=== PATIENT | male | born 1970 | race Caucasian/White ===

== ENCOUNTER 2020-06-07 09:38 | Inpatient (IN) | payer BC ==
[2020-06-07 10:28] LABS: #Lymphocytes 0.5 thou/uL (1.20-3.40); #Monocytes 0.7 thou/uL (0.11-0.59); #Neutrophils 5.9 thou/uL (1.40-6.50); %Eosinophils 0.2 % (0.0-10.0); %Lymphocytes 7.1 % (21.0-51.0); %Monocytes 9.6 % (0.0-10.0); %Neutrophils 83.1 % (42.0-75.0); Hemoglobin 12.2 g/dL (14.0-18.0); Mean Corpuscular HGB CONC 33.9 g/dL (32.0-36.0); Mean Platelet Volume 9.2 fL (7.4-10.4); Platelet Count 140 thou/uL (130-400); RBC Distribution Width 11.9 % (11.5-14.5); Red Blood Cell (RBC) Count 3.58 mill/uL (4.70-6.10); White Blood Cell (WBC) Count 7.1 thou/uL (4.8-10.8)
[2020-06-07 10:49] LABS: ALT (SGPT) 176 U/L (8-55); AST (SGOT) 153 U/L (5-34); Albumin 3.8 g/dL (3.5-5.0); Alkaline Phosphatase 106 U/L (40-110); Anion Gap 13 mmol/L (10-20); BUN (Urea Nitrogen) 18 mg/dL (8.4-25.7); Bilirubin, Total 0.8 mg/dL (0.2-1.2); Calc. Creatinine Clearance 0 mL/min (70-130); Calcium 8.1 mg/dL (7.8-10.44); Carbon Dioxide 25 mmol/L (22-29); Chloride 105 mmol/L (98-107); Globulin 2.6 g/dL (2.4-3.5); Glucose 125 mg/dL (70-105); Potassium 4.4 mmol/L (3.5-5.1); Protein, Total 6.4 g/dL (6.0-8.3); Sodium 139 mmol/L (136-145)
[2020-06-07] MEDS ORDERED: cefTRIAXone\\ROCEPHIN 1 GM VIAL ONE (10:52)
[2020-06-07] MEDS ORDERED: Ibuprofen 200 MG TAB ONE (10:52)
[2020-06-07] MEDS ORDERED: Dexamethasone 10 MG/ML VIAL ONE (10:52)
[2020-06-07] MEDS ORDERED: Azithromycin 500 MG VIAL ONE (10:52)
[2020-06-07] MEDS ORDERED: Iopamidol-370 76% 500 ML 1 ML ONE (11:17)
[2020-06-07] MEDS ORDERED: PROPOFOL 200 MG/20 ML VIAL ONE (11:42)
[2020-06-07] MEDS ORDERED: Succinylcholine 200 MG/10 ml SYRINGE FS ONE (11:42)
[2020-06-07 12:52] LABS: SARS-CoV-2 NAA Rapid Test DETECTED (NotDetected)
[2020-06-07] MEDS ORDERED: Ascorbic Acid 500 mg Chewable Tablet PO SCH ×2 (13:45→21:00)
[2020-06-07] MEDS ORDERED: Enoxaparin Sodium 40 MG/0.4 ML SYRINGE SC SCH (13:45)
[2020-06-07 15:39] LABS: Bilirubin Negative (Negative); Blood, Urine Negative (Negative); Clarity Clear (Clear); Glucose, Urine (Dipstick) Normal (Negative); Ketone, Urine Negative (Negative); Leukocyte Negative Leu/uL (Negative); Nitrite Negative (Negative); Protein, Urine (Dipstick) 20 mg/dL (Neg-Trace); Specific Gravity, Urine 1.038 (1.002-1.036); Urobilinogen Normal mg/dL (Less than 2); pH, Urine 6.5 (5.0-9.0)
[2020-06-07] MEDS ORDERED: guaiFENesin 200 MG TAB PO SCH (18:00)
[2020-06-07] MEDS ORDERED: Pharmacy to Dose REMDESIVIR IVPB PRN (19:50)
[2020-06-07] MEDS: Enoxaparin Sodium 40 MG/0.4 ML SYRINGE SC SCH (23:06)
[2020-06-07] MEDS ORDERED: Amlodipine 5 MG TAB PO SCH (23:30)
[2020-06-07] MEDS: Guaifenesin DM 100-10/5 ML UDCUP PO PRN (23:37)
[2020-06-07] MEDS: Acetaminophen 325 MG TAB PO PRN (23:38)
[2020-06-07] MEDS: Ondansetron PF 4 MG/2 ML Vial IVP PRN (23:38)
[2020-06-07] MEDS ORDERED: REMDESIVIR (EUA) 200 MG in Sodium Chloride 0.9% 250 ML 210 ML IV SCH (23:45)
[2020-06-08] MEDS: Guaifenesin DM 100-10/5 ML UDCUP PO PRN (03:20)
[2020-06-08 05:16] LABS: #Lymphocytes 0.7 thou/uL (1.20-3.40); #Monocytes 0.6 thou/uL (0.11-0.59); #Neutrophils 7.4 thou/uL (1.40-6.50); %Basophils 0.1 % (0.0-1.0); %Eosinophils 0.2 % (0.0-10.0); %Lymphocytes 7.5 % (21.0-51.0); %Neutrophils 85.3 % (42.0-75.0); Hemoglobin 13.6 g/dL (14.0-18.0); Mean Corpuscular HGB CONC 31.9 g/dL (32.0-36.0); Mean Corpuscular Hemoglobin 31.7 pg (27.0-31.0); Mean Corpuscular Volume 99.4 fL (78.0-98.0); Mean Platelet Volume 8.8 fL (7.4-10.4); Platelet Count 177 thou/uL (130-400); Red Blood Cell (RBC) Count 4.28 mill/uL (4.70-6.10); White Blood Cell (WBC) Count 8.6 thou/uL (4.8-10.8)
[2020-06-08 05:40] LABS: ALT (SGPT) 170 U/L (8-55); AST (SGOT) 138 U/L (5-34); Albumin 3.6 g/dL (3.5-5.0); Alkaline Phosphatase 106 U/L (40-110); Anion Gap 12 mmol/L (10-20); BUN (Urea Nitrogen) 17 mg/dL (8.4-25.7); Bilirubin, Total 0.6 mg/dL (0.2-1.2); Calc. Creatinine Clearance 177 mL/min (70-130); Calcium 8.3 mg/dL (7.8-10.44); Carbon Dioxide 25 mmol/L (22-29); Chloride 106 mmol/L (98-107); Globulin 3.4 g/dL (2.4-3.5); Glucose 123 mg/dL (70-105); Potassium 4.3 mmol/L (3.5-5.1); Sodium 139 mmol/L (136-145)
[2020-06-08] MEDS: Ondansetron PF 4 MG/2 ML Vial IVP PRN (06:13)
[2020-06-08] MEDS: Ascorbic Acid 500 mg Chewable Tablet PO SCH ×2 (07:40→19:57)
[2020-06-08] MEDS: Cholecalciferol 1,000 UNITS (25 MCG) TAB PO SCH (07:41)
[2020-06-08] MEDS: Losartan 25 MG TAB PO SCH (07:42)
[2020-06-08] MEDS ORDERED: Albuterol Sulfate 2.5 mg/3 ml Neb NEB PRN (07:42)
[2020-06-08] MEDS: Rosuvastatin 10 MG TAB PO SCH (07:43)
[2020-06-08] MEDS: Zinc Sulfate 220 MG CAP PO SCH (07:44)
[2020-06-08] MEDS: Enoxaparin Sodium 40 MG/0.4 ML SYRINGE SC SCH (07:46)
[2020-06-08] MEDS: Acetaminophen 325 MG TAB PO PRN ×2 (08:36→17:10)
[2020-06-08] MEDS ORDERED: Dexamethasone 10 MG in Sodium Chloride 0.9% 50 ML IVPB SCH (09:00)
[2020-06-08] MEDS ORDERED: Dexamethasone 4 mg/ml Vial SLOW IVP SCH (09:00)
[2020-06-08] MEDS ORDERED: Ascorbic Acid 500 mg Chewable Tablet PO SCH (09:00)
[2020-06-08] MEDS ORDERED: Enoxaparin Sodium 60 MG/0.6 ML SYRINGE SC SCH (10:50)
[2020-06-08] MEDS ORDERED: Albuterol 200 PUFF (6.7GM INHALER) INH PRN (18:31)
[2020-06-08] MEDS: Enoxaparin Sodium 60 MG/0.6 ML SYRINGE SC SCH (19:56)
[2020-06-08] MEDS: Dexamethasone 4 mg/ml Vial SLOW IVP SCH (19:56)
[2020-06-08] MEDS: Amlodipine 5 MG TAB PO SCH (19:57)
[2020-06-08] MEDS: Famotidine 20 MG TAB PO SCH (19:57)
[2020-06-08] MEDS: Mometasone 200 MCG/Formoterol 5 MCG 120 PUFF INHALER INH SCH (20:49)
[2020-06-08] MEDS: REMDESIVIR (EUA) 100 MG in Sodium Chloride 0.9% 250 ML 230 ML IV SCH (23:56)
[2020-06-09 05:32] LABS: #Lymphocytes 0.6 thou/uL (1.20-3.40); #Monocytes 0.6 thou/uL (0.11-0.59); #Neutrophils 8.3 thou/uL (1.40-6.50); %Basophils 0.3 % (0.0-1.0); %Eosinophils 0.1 % (0.0-10.0); %Lymphocytes 6.1 % (21.0-51.0); %Neutrophils 87.5 % (42.0-75.0); Hemoglobin 12.5 g/dL (14.0-18.0); Mean Corpuscular HGB CONC 33.1 g/dL (32.0-36.0); Mean Corpuscular Hemoglobin 33.3 pg (27.0-31.0); Mean Platelet Volume 8.7 fL (7.4-10.4); Platelet Count 188 thou/uL (130-400); RBC Distribution Width 12.1 % (11.5-14.5); Red Blood Cell (RBC) Count 3.75 mill/uL (4.70-6.10); White Blood Cell (WBC) Count 9.5 thou/uL (4.8-10.8)
[2020-06-09 05:38] LABS: ALT (SGPT) 174 U/L (8-55); AST (SGOT) 100 U/L (5-34); Albumin 3.4 g/dL (3.5-5.0); Alkaline Phosphatase 116 U/L (40-110); Bilirubin, Direct 0.4 mg/dL (0.1-0.3); Bilirubin, Total 0.6 mg/dL (0.2-1.2); Protein, Total 6.6 g/dL (6.0-8.3)
[2020-06-09 05:43] LABS: ALT (SGPT) 178 U/L (8-55); AST (SGOT) 101 U/L (5-34); Albumin 3.4 g/dL (3.5-5.0); Alkaline Phosphatase 119 U/L (40-110); Anion Gap 13 mmol/L (10-20); BUN (Urea Nitrogen) 19 mg/dL (8.4-25.7); Bilirubin, Total 0.7 mg/dL (0.2-1.2); Calc. Creatinine Clearance 165 mL/min (70-130); Calcium 8.2 mg/dL (7.8-10.44); Carbon Dioxide 26 mmol/L (22-29); Chloride 104 mmol/L (98-107); Globulin 3.2 g/dL (2.4-3.5); Glucose 146 mg/dL (70-105); Potassium 4.4 mmol/L (3.5-5.1); Protein, Total 6.6 g/dL (6.0-8.3); Sodium 139 mmol/L (136-145)
[2020-06-09] MEDS: Mometasone 200 MCG/Formoterol 5 MCG 120 PUFF INHALER INH SCH ×2 (05:59→20:33)
[2020-06-09] MEDS: Enoxaparin Sodium 60 MG/0.6 ML SYRINGE SC SCH ×2 (08:13→21:17)
[2020-06-09] MEDS: Ascorbic Acid 500 mg Chewable Tablet PO SCH ×2 (08:14→21:23)
[2020-06-09] MEDS: Cholecalciferol 1,000 UNITS (25 MCG) TAB PO SCH (08:14)
[2020-06-09] MEDS: Famotidine 20 MG TAB PO SCH ×2 (08:15→21:18)
[2020-06-09] MEDS: Dexamethasone 4 mg/ml Vial SLOW IVP SCH ×2 (08:15→21:17)
[2020-06-09] MEDS: Losartan 25 MG TAB PO SCH (08:15)
[2020-06-09] MEDS: Zinc Sulfate 220 MG CAP PO SCH (08:16)
[2020-06-09] MEDS: Rosuvastatin 10 MG TAB PO SCH (08:16)
[2020-06-09] MEDS: Acetaminophen 325 MG TAB PO PRN (08:52)
[2020-06-09] MEDS: Amlodipine 5 MG TAB PO SCH (21:18)
[2020-06-09] MEDS: Colchicine 0.6 MG TAB PO SCH (22:01)
[2020-06-10] MEDS: REMDESIVIR (EUA) 100 MG in Sodium Chloride 0.9% 250 ML 230 ML IV SCH (00:09)
[2020-06-10 04:31] LABS: Band 2 % (5-11); Hemoglobin 13.4 g/dL (14.0-18.0); Hypochromia SLIGHT = 6-15 cells (100X) (0-5/hpf); Lymphocytes 4 % (21-51); MDiff Complete? YES; Mean Corpuscular Hemoglobin 33.1 pg (27.0-31.0); Mean Platelet Volume 8.6 fL (7.4-10.4); Monocytes 18 % (0-10); Neutrophil 76 % (42-75); Platelet Count 227 thou/uL (130-400); Platelet Morphology Comment Appears Adequate; Red Blood Cell (RBC) Count 4.05 mill/uL (4.70-6.10); White Blood Cell (WBC) Count 10.9 thou/uL (4.8-10.8)
[2020-06-10 04:46] LABS: ALT (SGPT) 141 U/L (8-55); AST (SGOT) 59 U/L (5-34); Albumin 3.3 g/dL (3.5-5.0); Alkaline Phosphatase 125 U/L (40-110); Bilirubin, Direct 0.4 mg/dL (0.1-0.3); Bilirubin, Total 0.7 mg/dL (0.2-1.2); Protein, Total 6.4 g/dL (6.0-8.3)
[2020-06-10 04:58] LABS: ALT (SGPT) 141 U/L (8-55); AST (SGOT) 63 U/L (5-34); Albumin 3.3 g/dL (3.5-5.0); Alkaline Phosphatase 128 U/L (40-110); Anion Gap 13 mmol/L (10-20); BUN (Urea Nitrogen) 23 mg/dL (8.4-25.7); Bilirubin, Total 0.7 mg/dL (0.2-1.2); Calc. Creatinine Clearance 181 mL/min (70-130); Calcium 8.3 mg/dL (7.8-10.44); Carbon Dioxide 25 mmol/L (22-29); Chloride 107 mmol/L (98-107); Globulin 3.2 g/dL (2.4-3.5); Glucose 152 mg/dL (70-105); Potassium 4.5 mmol/L (3.5-5.1); Protein, Total 6.5 g/dL (6.0-8.3); Sodium 140 mmol/L (136-145)
[2020-06-10] MEDS: Mometasone 200 MCG/Formoterol 5 MCG 120 PUFF INHALER INH SCH ×2 (06:46→18:58)
[2020-06-10] MEDS: Zinc Sulfate 220 MG CAP PO SCH (08:22)
[2020-06-10] MEDS: Losartan 25 MG TAB PO SCH (08:22)
[2020-06-10] MEDS: Rosuvastatin 10 MG TAB PO SCH (08:23)
[2020-06-10] MEDS: Cholecalciferol 1,000 UNITS (25 MCG) TAB PO SCH (08:23)
[2020-06-10] MEDS: Famotidine 20 MG TAB PO SCH ×2 (08:23→21:28)
[2020-06-10] MEDS: Dexamethasone 4 mg/ml Vial SLOW IVP SCH ×2 (08:24→21:27)
[2020-06-10] MEDS: Colchicine 0.6 MG TAB PO SCH ×2 (08:24→21:28)
[2020-06-10] MEDS: Enoxaparin Sodium 60 MG/0.6 ML SYRINGE SC SCH ×2 (08:24→21:29)
[2020-06-10] MEDS: Ascorbic Acid 500 mg Chewable Tablet PO SCH ×2 (10:39→21:28)
[2020-06-10] MEDS: Amlodipine 5 MG TAB PO SCH (21:28)
[2020-06-11] MEDS: REMDESIVIR (EUA) 100 MG in Sodium Chloride 0.9% 250 ML 230 ML IV SCH (01:31)
[2020-06-11 04:29] LABS: ALT (SGPT) 103 U/L (8-55); AST (SGOT) 39 U/L (5-34); Albumin 3.1 g/dL (3.5-5.0); Alkaline Phosphatase 118 U/L (40-110); Bilirubin, Direct 0.3 mg/dL (0.1-0.3); Bilirubin, Total 0.8 mg/dL (0.2-1.2); Protein, Total 6.3 g/dL (6.0-8.3)
[2020-06-11] MEDS: Mometasone 200 MCG/Formoterol 5 MCG 120 PUFF INHALER INH SCH ×2 (07:59→19:02)
[2020-06-11] MEDS: Dexamethasone 4 mg/ml Vial SLOW IVP SCH ×2 (08:17→21:39)
[2020-06-11] MEDS: Enoxaparin Sodium 60 MG/0.6 ML SYRINGE SC SCH ×2 (08:17→21:39)
[2020-06-11] MEDS: Famotidine 20 MG TAB PO SCH (08:18)
[2020-06-11] MEDS: Rosuvastatin 10 MG TAB PO SCH (08:18)
[2020-06-11] MEDS: Cholecalciferol 1,000 UNITS (25 MCG) TAB PO SCH (08:19)
[2020-06-11] MEDS: Zinc Sulfate 220 MG CAP PO SCH (08:19)
[2020-06-11] MEDS: Ascorbic Acid 500 mg Chewable Tablet PO SCH ×2 (08:20→21:38)
[2020-06-11] MEDS: Losartan 25 MG TAB PO SCH (08:21)
[2020-06-11] MEDS: Colchicine 0.6 MG TAB PO SCH ×2 (08:23→21:38)
[2020-06-11] MEDS ORDERED: Mag-Al Plus 1200 MG/1200 MG/120 MG/30 ML UDCUP PO PRN (08:58)
[2020-06-11] MEDS: Pantoprazole 40 MG VIAL IVP SCH ×2 (09:53→21:44)
[2020-06-11] MEDS: Amlodipine 5 MG TAB PO SCH (21:38)
[2020-06-12] MEDS: REMDESIVIR (EUA) 100 MG in Sodium Chloride 0.9% 250 ML 230 ML IV SCH (00:30)
[2020-06-12 04:36] LABS: ALT (SGPT) 81 U/L (8-55); AST (SGOT) 27 U/L (5-34); Albumin 3.1 g/dL (3.5-5.0); Alkaline Phosphatase 109 U/L (40-110); Bilirubin, Direct 0.4 mg/dL (0.1-0.3); Bilirubin, Total 0.9 mg/dL (0.2-1.2); Protein, Total 5.9 g/dL (6.0-8.3)
[2020-06-12] MEDS: Zinc Sulfate 220 MG CAP PO SCH (08:17)
[2020-06-12] MEDS: Colchicine 0.6 MG TAB PO SCH ×2 (08:18→20:41)
[2020-06-12] MEDS: Rosuvastatin 10 MG TAB PO SCH (08:18)
[2020-06-12] MEDS: Pantoprazole 40 MG VIAL IVP SCH (08:18)
[2020-06-12] MEDS: Losartan 25 MG TAB PO SCH (08:18)
[2020-06-12] MEDS: Enoxaparin Sodium 60 MG/0.6 ML SYRINGE SC SCH ×2 (08:20→20:49)
[2020-06-12] MEDS: Mometasone 200 MCG/Formoterol 5 MCG 120 PUFF INHALER INH SCH ×2 (08:23→18:16)
[2020-06-12] MEDS: Ascorbic Acid 500 mg Chewable Tablet PO SCH ×2 (08:24→20:41)
[2020-06-12] MEDS: methylPREDNISolone Sod Succ/PF 125 MG/2 ML VIAL IVP SCH ×3 (08:36→20:50)
[2020-06-12] MEDS: Ivermectin 3 MG TAB PO SCH (15:54)
[2020-06-12] MEDS: Amlodipine 5 MG TAB PO SCH (20:41)
[2020-06-13] MEDS: methylPREDNISolone Sod Succ/PF 125 MG/2 ML VIAL IVP SCH ×4 (02:08→22:20)
[2020-06-13] MEDS: Mometasone 200 MCG/Formoterol 5 MCG 120 PUFF INHALER INH SCH ×2 (07:01→19:51)
[2020-06-13] MEDS: Losartan 25 MG TAB PO SCH (10:00)
[2020-06-13] MEDS: Ascorbic Acid 500 mg Chewable Tablet PO SCH ×2 (10:01→22:17)
[2020-06-13] MEDS: Enoxaparin Sodium 60 MG/0.6 ML SYRINGE SC SCH ×2 (10:01→22:16)
[2020-06-13] MEDS: Rosuvastatin 10 MG TAB PO SCH (10:01)
[2020-06-13] MEDS: Zinc Sulfate 220 MG CAP PO SCH (10:01)
[2020-06-13] MEDS: Colchicine 0.6 MG TAB PO SCH ×2 (10:01→22:16)
[2020-06-13] MEDS: Ivermectin 3 MG TAB PO SCH (10:04)
[2020-06-13] MEDS ORDERED: Ivermectin 3 MG TAB PO SCH ×2 (15:00)
[2020-06-13] MEDS: Amlodipine 5 MG TAB PO SCH (22:17)
[2020-06-14] MEDS: methylPREDNISolone Sod Succ/PF 125 MG/2 ML VIAL IVP SCH ×2 (04:02→08:33)
[2020-06-14] MEDS: Losartan 25 MG TAB PO SCH (08:29)
[2020-06-14] MEDS: Enoxaparin Sodium 60 MG/0.6 ML SYRINGE SC SCH ×2 (08:29→21:07)
[2020-06-14] MEDS: Ascorbic Acid 500 mg Chewable Tablet PO SCH ×2 (08:30→21:06)
[2020-06-14] MEDS: Zinc Sulfate 220 MG CAP PO SCH (08:30)
[2020-06-14] MEDS: Colchicine 0.6 MG TAB PO SCH ×2 (08:30→21:06)
[2020-06-14] MEDS: Rosuvastatin 10 MG TAB PO SCH (08:33)
[2020-06-14] MEDS: Dexamethasone 10 MG in Sodium Chloride 0.9% 50 ML IVPB SCH (10:13)
[2020-06-14] MEDS: Ivermectin 3 MG TAB PO SCH (14:13)
[2020-06-14] MEDS: Mometasone 200 MCG/Formoterol 5 MCG 120 PUFF INHALER INH SCH ×2 (21:06)
[2020-06-14] MEDS: Amlodipine 5 MG TAB PO SCH (21:07)
[2020-06-15 04:21] LABS: Anion Gap 13 mmol/L (10-20); BUN (Urea Nitrogen) 22 mg/dL (8.4-25.7); CRP (Inflammatory) Less than 0.50 mg/dL (= or < 0.5); Calc. Creatinine Clearance 196 mL/min (70-130); Calcium 7.2 mg/dL (7.8-10.44); Carbon Dioxide 21 mmol/L (22-29); Chloride 109 mmol/L (98-107); Glucose 151 mg/dL (70-105); Sodium 139 mmol/L (136-145)
[2020-06-15 04:35] LABS: Band 5 % (5-11); Hemoglobin 13.5 g/dL (14.0-18.0); Lymphocytes 2 % (21-51); MDiff Complete? YES; Mean Corpuscular HGB CONC 34.1 g/dL (32.0-36.0); Mean Corpuscular Hemoglobin 33.2 pg (27.0-31.0); Mean Corpuscular Volume 97.5 fL (78.0-98.0); Mean Platelet Volume 7.9 fL (7.4-10.4); Monocytes 6 % (0-10); Neutrophil 87 % (42-75); Platelet Count 293 thou/uL (130-400); RBC Distribution Width 11.9 % (11.5-14.5); Red Blood Cell (RBC) Count 4.07 mill/uL (4.70-6.10); White Blood Cell (WBC) Count 15.9 thou/uL (4.8-10.8)
[2020-06-15] MEDS: Mometasone 200 MCG/Formoterol 5 MCG 120 PUFF INHALER INH SCH ×2 (06:43→18:03)
[2020-06-15] MEDS: Colchicine 0.6 MG TAB PO SCH ×2 (07:40→20:44)
[2020-06-15] MEDS: Rosuvastatin 10 MG TAB PO SCH (07:40)
[2020-06-15] MEDS: Enoxaparin Sodium 60 MG/0.6 ML SYRINGE SC SCH ×2 (07:40→20:41)
[2020-06-15] MEDS: Dexamethasone 10 MG in Sodium Chloride 0.9% 50 ML IVPB SCH (07:40)
[2020-06-15] MEDS: Ascorbic Acid 500 mg Chewable Tablet PO SCH ×2 (07:41→20:41)
[2020-06-15] MEDS: Zinc Sulfate 220 MG CAP PO SCH (07:41)
[2020-06-15] MEDS: Losartan 25 MG TAB PO SCH (07:41)
[2020-06-15] MEDS: Ivermectin 3 MG TAB PO SCH (15:42)
[2020-06-15] MEDS: Doxycycline 100 MG CAP PO SCH (20:41)
[2020-06-15] MEDS: Amlodipine 5 MG TAB PO SCH (20:41)
[2020-06-16] MEDS: Mometasone 200 MCG/Formoterol 5 MCG 120 PUFF INHALER INH SCH ×2 (05:59→17:46)
[2020-06-16] MEDS: Dexamethasone 10 MG in Sodium Chloride 0.9% 50 ML IVPB SCH (08:28)
[2020-06-16] MEDS: Enoxaparin Sodium 60 MG/0.6 ML SYRINGE SC SCH ×2 (08:28→21:02)
[2020-06-16] MEDS: Colchicine 0.6 MG TAB PO SCH ×2 (08:28→21:03)
[2020-06-16] MEDS: Zinc Sulfate 220 MG CAP PO SCH (08:29)
[2020-06-16] MEDS: Losartan 25 MG TAB PO SCH (08:29)
[2020-06-16] MEDS: Doxycycline 100 MG CAP PO SCH ×2 (08:29→21:03)
[2020-06-16] MEDS: Rosuvastatin 10 MG TAB PO SCH (08:29)
[2020-06-16] MEDS: Ascorbic Acid 500 mg Chewable Tablet PO SCH (08:29)
[2020-06-16] MEDS: Ivermectin 3 MG TAB PO SCH (15:06)
[2020-06-16] MEDS: Amlodipine 5 MG TAB PO SCH (21:03)
[2020-06-17] MEDS: Mometasone 200 MCG/Formoterol 5 MCG 120 PUFF INHALER INH SCH ×2 (07:52→19:17)
[2020-06-17] MEDS: Dexamethasone 10 MG in Sodium Chloride 0.9% 50 ML IVPB SCH (08:21)
[2020-06-17] MEDS: Colchicine 0.6 MG TAB PO SCH ×2 (08:21→21:03)
[2020-06-17] MEDS: Enoxaparin Sodium 60 MG/0.6 ML SYRINGE SC SCH ×2 (08:22→21:03)
[2020-06-17] MEDS: Doxycycline 100 MG CAP PO SCH ×2 (08:22→21:03)
[2020-06-17] MEDS: Zinc Sulfate 220 MG CAP PO SCH (08:22)
[2020-06-17] MEDS: Rosuvastatin 10 MG TAB PO SCH (08:22)
[2020-06-17] MEDS: Ascorbic Acid 500 mg Chewable Tablet PO SCH (08:22)
[2020-06-17] MEDS: Losartan 25 MG TAB PO SCH (08:24)
[2020-06-17] MEDS: Amlodipine 5 MG TAB PO SCH (21:03)
[2020-06-18] MEDS: Mometasone 200 MCG/Formoterol 5 MCG 120 PUFF INHALER INH SCH ×2 (07:30→17:49)
[2020-06-18] MEDS: Dexamethasone 10 MG in Sodium Chloride 0.9% 50 ML IVPB SCH (09:29)
[2020-06-18] MEDS: Losartan 25 MG TAB PO SCH (09:30)
[2020-06-18] MEDS: Doxycycline 100 MG CAP PO SCH ×2 (09:30→21:13)
[2020-06-18] MEDS: Ascorbic Acid 500 mg Chewable Tablet PO SCH (09:31)
[2020-06-18] MEDS: Enoxaparin Sodium 60 MG/0.6 ML SYRINGE SC SCH ×2 (09:31→21:12)
[2020-06-18] MEDS: Colchicine 0.6 MG TAB PO SCH ×2 (09:31→21:13)
[2020-06-18] MEDS: Rosuvastatin 10 MG TAB PO SCH (09:31)
[2020-06-18] MEDS: Zinc Sulfate 220 MG CAP PO SCH (09:31)
[2020-06-18] MEDS: Amlodipine 5 MG TAB PO SCH (21:13)
[2020-06-19] MEDS: Mometasone 200 MCG/Formoterol 5 MCG 120 PUFF INHALER INH SCH ×2 (06:22→17:37)
[2020-06-19] MEDS: Losartan 25 MG TAB PO SCH (09:16)
[2020-06-19] MEDS: Zinc Sulfate 220 MG CAP PO SCH (09:16)
[2020-06-19] MEDS: Rosuvastatin 10 MG TAB PO SCH (09:17)
[2020-06-19] MEDS: Doxycycline 100 MG CAP PO SCH ×2 (09:17→20:21)
[2020-06-19] MEDS: Ascorbic Acid 500 mg Chewable Tablet PO SCH (09:17)
[2020-06-19] MEDS: Enoxaparin Sodium 60 MG/0.6 ML SYRINGE SC SCH ×2 (09:18→20:21)
[2020-06-19] MEDS: Colchicine 0.6 MG TAB PO SCH ×2 (09:18→20:21)
[2020-06-19] MEDS: Acetaminophen 325 MG TAB PO PRN (09:18)
[2020-06-19] MEDS: Dexamethasone 10 MG in Sodium Chloride 0.9% 50 ML IVPB SCH (09:19)
[2020-06-19] MEDS: Amlodipine 5 MG TAB PO SCH (20:21)
[2020-06-20] MEDS: Mometasone 200 MCG/Formoterol 5 MCG 120 PUFF INHALER INH SCH ×2 (07:12→19:09)
[2020-06-20 08:12] LABS: White Blood Cell (WBC) Count 15.9 thou/uL (4.8-10.8)
[2020-06-20 08:28] LABS: Anion Gap 14 mmol/L (10-20); BUN (Urea Nitrogen) 16 mg/dL (8.4-25.7); Calc. Creatinine Clearance 184 mL/min (70-130); Calcium 8.3 mg/dL (7.8-10.44); Carbon Dioxide 26 mmol/L (22-29); Chloride 106 mmol/L (98-107); Glucose 118 mg/dL (70-105); Potassium 3.9 mmol/L (3.5-5.1); Sodium 142 mmol/L (136-145)
[2020-06-20 08:32] LABS: Hemoglobin 14.9 g/dL (14.0-18.0); Mean Corpuscular Volume 99.9 fL (78.0-98.0); RBC Distribution Width 12.4 % (11.5-14.5); Red Blood Cell (RBC) Count 4.52 mill/uL (4.70-6.10)
[2020-06-20 08:35] LABS: Band 2 % (5-11); Eosinophils 1 % (0-10); Lymphocytes 5 % (21-51); MDiff Complete? YES; Mean Platelet Volume 7.9 fL (7.4-10.4); Monocytes 9 % (0-10); Neutrophil 82 % (42-75); Platelet Count 256 thou/uL (130-400); Platelet Morphology Comment Appears Adequate; Reactive Lymphocytes 1 % (0-10)
[2020-06-20] MEDS: Rosuvastatin 10 MG TAB PO SCH (08:39)
[2020-06-20] MEDS: Losartan 25 MG TAB PO SCH (08:40)
[2020-06-20] MEDS: Colchicine 0.6 MG TAB PO SCH ×2 (08:40→20:14)
[2020-06-20] MEDS: Enoxaparin Sodium 60 MG/0.6 ML SYRINGE SC SCH ×2 (08:40→20:15)
[2020-06-20] MEDS: Zinc Sulfate 220 MG CAP PO SCH (08:40)
[2020-06-20] MEDS: Ascorbic Acid 500 mg Chewable Tablet PO SCH (08:40)
[2020-06-20] MEDS: Doxycycline 100 MG CAP PO SCH ×2 (08:40→20:14)
[2020-06-20] MEDS: Dexamethasone 10 MG in Sodium Chloride 0.9% 50 ML IVPB SCH (08:40)
[2020-06-20] MEDS: Amlodipine 5 MG TAB PO SCH (20:15)
[2020-06-21 03:56] LABS: Band 5 % (5-11); Lymphocytes 2 % (21-51); MDiff Complete? YES; Mean Corpuscular HGB CONC 32.6 g/dL (32.0-36.0); Mean Corpuscular Hemoglobin 32.6 pg (27.0-31.0); Mean Platelet Volume 8.4 fL (7.4-10.4); Monocytes 10 % (0-10); Neutrophil 82 % (42-75); Platelet Count 208 thou/uL (130-400); Platelet Morphology Comment Appears Adequate; RBC Distribution Width 12.6 % (11.5-14.5); RBC Morphology Normal; Reactive Lymphocytes 1 % (0-10); Red Blood Cell (RBC) Count 4.28 mill/uL (4.70-6.10)
[2020-06-21 04:05] LABS: Anion Gap 14 mmol/L (10-20); BUN (Urea Nitrogen) 13 mg/dL (8.4-25.7); Calc. Creatinine Clearance 201 mL/min (70-130); Carbon Dioxide 21 mmol/L (22-29); Chloride 105 mmol/L (98-107); Glucose 91 mg/dL (70-105); Potassium 4.2 mmol/L (3.5-5.1); Sodium 136 mmol/L (136-145)
[2020-06-21] MEDS: Losartan 25 MG TAB PO SCH (07:43)
[2020-06-21] MEDS: Dexamethasone 10 MG in Sodium Chloride 0.9% 50 ML IVPB SCH (07:44)
[2020-06-21] MEDS: Doxycycline 100 MG CAP PO SCH ×2 (07:44→21:01)
[2020-06-21] MEDS: Rosuvastatin 10 MG TAB PO SCH (07:44)
[2020-06-21] MEDS: Ascorbic Acid 500 mg Chewable Tablet PO SCH (07:44)
[2020-06-21] MEDS: Zinc Sulfate 220 MG CAP PO SCH (07:44)
[2020-06-21] MEDS: Colchicine 0.6 MG TAB PO SCH ×2 (07:44→21:04)
[2020-06-21] MEDS: Enoxaparin Sodium 60 MG/0.6 ML SYRINGE SC SCH ×2 (07:44→21:00)
[2020-06-21] MEDS: Mometasone 200 MCG/Formoterol 5 MCG 120 PUFF INHALER INH SCH ×2 (08:09→18:43)
[2020-06-21] MEDS: Amlodipine 5 MG TAB PO SCH (21:01)
[2020-06-21] MEDS: Dexamethasone 4 MG TAB PO SCH (21:04)
[2020-06-22 04:23] LABS: Anion Gap 14 mmol/L (10-20); BUN (Urea Nitrogen) 16 mg/dL (8.4-25.7); Calc. Creatinine Clearance 204 mL/min (70-130); Calcium 8.2 mg/dL (7.8-10.44); Carbon Dioxide 23 mmol/L (22-29); Chloride 107 mmol/L (98-107); Glucose 138 mg/dL (70-105); Potassium 4.5 mmol/L (3.5-5.1); Sodium 139 mmol/L (136-145)
[2020-06-22 04:28] LABS: Band 13 % (5-11); Lymphocytes 6 % (21-51); MDiff Complete? YES; Mean Corpuscular HGB CONC 34.4 g/dL (32.0-36.0); Mean Corpuscular Hemoglobin 34.4 pg (27.0-31.0); Monocytes 6 % (0-10); Neutrophil 75 % (42-75); Platelet Count 197 thou/uL (130-400); Platelet Morphology Comment Appears Adequate; RBC Distribution Width 12.6 % (11.5-14.5); Red Blood Cell (RBC) Count 4.05 mill/uL (4.70-6.10); White Blood Cell (WBC) Count 14.1 thou/uL (4.8-10.8)
[2020-06-22] MEDS: Mometasone 200 MCG/Formoterol 5 MCG 120 PUFF INHALER INH SCH ×2 (08:23→19:06)
[2020-06-22] MEDS: Dexamethasone 4 MG TAB PO SCH (10:17)
[2020-06-22] MEDS: Colchicine 0.6 MG TAB PO SCH ×2 (10:17→21:07)
[2020-06-22] MEDS: Ascorbic Acid 500 mg Chewable Tablet PO SCH (10:17)
[2020-06-22] MEDS: Enoxaparin Sodium 60 MG/0.6 ML SYRINGE SC SCH ×2 (10:18→21:06)
[2020-06-22] MEDS: Rosuvastatin 10 MG TAB PO SCH (10:18)
[2020-06-22] MEDS: Losartan 25 MG TAB PO SCH (10:18)
[2020-06-22] MEDS: Zinc Sulfate 220 MG CAP PO SCH (10:18)
[2020-06-22] MEDS: Doxycycline 100 MG CAP PO SCH ×2 (10:18→21:07)
[2020-06-22] MEDS ORDERED: Cholecalciferol 1,000 UNITS (25 MCG) TAB PO SCH (16:15)
[2020-06-22] MEDS: ALPRAZolam 0.25 MG TAB PO PRN (16:55)
[2020-06-22] MEDS: Dexamethasone 4 mg/ml Vial SLOW IVP SCH (21:06)
[2020-06-22] MEDS: Amlodipine 5 MG TAB PO SCH ×2 (21:07→21:53)
[2020-06-23] MEDS: ALPRAZolam 0.25 MG TAB PO PRN ×3 (02:10→22:18)
[2020-06-23 04:03] LABS: Hemoglobin 13.2 g/dL (14.0-18.0); Hypochromia SLIGHT = 6-15 cells (100X) (0-5/hpf); Lymphocytes 6 % (21-51); MDiff Complete? YES; Mean Corpuscular HGB CONC 33.2 g/dL (32.0-36.0); Mean Corpuscular Hemoglobin 33.2 pg (27.0-31.0); Mean Platelet Volume 8.1 fL (7.4-10.4); Metamyelocyte 1 % (0-0); Monocytes 5 % (0-10); Neutrophil 88 % (42-75); Platelet Count 186 thou/uL (130-400); Platelet Morphology Comment Appears Adequate; RBC Distribution Width 12.4 % (11.5-14.5); Red Blood Cell (RBC) Count 3.98 mill/uL (4.70-6.10); White Blood Cell (WBC) Count 8.9 thou/uL (4.8-10.8)
[2020-06-23 04:07] LABS: Anion Gap 15 mmol/L (10-20); BUN (Urea Nitrogen) 19 mg/dL (8.4-25.7); Calc. Creatinine Clearance 207 mL/min (70-130); Calcium 8.1 mg/dL (7.8-10.44); Carbon Dioxide 22 mmol/L (22-29); Chloride 106 mmol/L (98-107); Glucose 162 mg/dL (70-105); Potassium 4.6 mmol/L (3.5-5.1); Sodium 138 mmol/L (136-145)
[2020-06-23] MEDS: Mometasone 200 MCG/Formoterol 5 MCG 120 PUFF INHALER INH SCH ×2 (07:34→18:48)
[2020-06-23] MEDS: Colchicine 0.6 MG TAB PO SCH ×2 (08:16→22:19)
[2020-06-23] MEDS: Rosuvastatin 10 MG TAB PO SCH (08:16)
[2020-06-23] MEDS: Cholecalciferol 1,000 UNITS (25 MCG) TAB PO SCH (08:17)
[2020-06-23] MEDS: Ascorbic Acid 500 mg Chewable Tablet PO SCH (08:17)
[2020-06-23] MEDS: Zinc Sulfate 220 MG CAP PO SCH (08:17)
[2020-06-23] MEDS: Enoxaparin Sodium 60 MG/0.6 ML SYRINGE SC SCH ×2 (08:18→22:18)
[2020-06-23] MEDS: Dexamethasone 4 mg/ml Vial SLOW IVP SCH ×2 (08:18→22:17)
[2020-06-23] MEDS: Losartan 25 MG TAB PO SCH (08:23)
[2020-06-23] MEDS: Cefepime 1 GM in Sodium Chloride 0.9% 100 ML IVPB SCH (13:04)
[2020-06-23] MEDS: Azithromycin 500 MG in Sodium Chloride 0.9% 250 ML 250 ML IVPB SCH (13:21)
[2020-06-23] MEDS: Amlodipine 5 MG TAB PO SCH (22:19)
[2020-06-24] MEDS: Cefepime 1 GM in Sodium Chloride 0.9% 100 ML IVPB SCH ×2 (00:18→13:05)
[2020-06-24 06:41] LABS: Hemoglobin 14.1 g/dL (14.0-18.0); Mean Corpuscular HGB CONC 33.7 g/dL (32.0-36.0); Mean Corpuscular Hemoglobin 33.4 pg (27.0-31.0); Mean Corpuscular Volume 99.1 fL (78.0-98.0); Mean Platelet Volume 7.9 fL (7.4-10.4); Platelet Count 184 thou/uL (130-400); RBC Distribution Width 12.4 % (11.5-14.5); Red Blood Cell (RBC) Count 4.24 mill/uL (4.70-6.10); White Blood Cell (WBC) Count 8.5 thou/uL (4.8-10.8)
[2020-06-24 06:42] LABS: Band 3 % (5-11); Lymphocytes 3 % (21-51); MDiff Complete? YES; Monocytes 13 % (0-10); Neutrophil 81 % (42-75); Platelet Morphology Comment Appears Adequate
[2020-06-24 06:53] LABS: Anion Gap 15 mmol/L (10-20); BUN (Urea Nitrogen) 23 mg/dL (8.4-25.7); CRP (Inflammatory) 1.79 mg/dL (= or < 0.5); Calc. Creatinine Clearance 192 mL/min (70-130); Calcium 8.7 mg/dL (7.8-10.44); Carbon Dioxide 22 mmol/L (22-29); Chloride 108 mmol/L (98-107); Glucose 151 mg/dL (70-105); Potassium 4.8 mmol/L (3.5-5.1); Sodium 140 mmol/L (136-145)
[2020-06-24] MEDS: Mometasone 200 MCG/Formoterol 5 MCG 120 PUFF INHALER INH SCH ×2 (06:59→18:19)
[2020-06-24] MEDS ORDERED: Furosemide 20 MG/2 ML VIAL IVP SCH (08:45)
[2020-06-24] MEDS ORDERED: clonazePAM 0.5 MG TAB PO SCH (09:00)
[2020-06-24] MEDS: Dexamethasone 4 mg/ml Vial SLOW IVP SCH ×2 (09:11→21:05)
[2020-06-24] MEDS: Rosuvastatin 10 MG TAB PO SCH ×2 (09:12→19:28)
[2020-06-24] MEDS: Losartan 25 MG TAB PO SCH (09:12)
[2020-06-24] MEDS: Ascorbic Acid 500 mg Chewable Tablet PO SCH ×2 (09:12→19:27)
[2020-06-24] MEDS: Colchicine 0.6 MG TAB PO SCH ×3 (09:12→21:11)
[2020-06-24] MEDS: Cholecalciferol 1,000 UNITS (25 MCG) TAB PO SCH ×2 (09:13→19:27)
[2020-06-24] MEDS: Zinc Sulfate 220 MG CAP PO SCH ×2 (09:13→19:28)
[2020-06-24] MEDS: Enoxaparin Sodium 60 MG/0.6 ML SYRINGE SC SCH ×2 (09:13→21:05)
[2020-06-24] MEDS: ALPRAZolam 0.25 MG TAB PO PRN (10:43)
[2020-06-24] MEDS: Azithromycin 500 MG in Sodium Chloride 0.9% 250 ML 250 ML IVPB SCH (14:01)
[2020-06-24] MEDS ORDERED: ALPRAZolam 0.25 MG TAB PO SCH (15:00)
[2020-06-24] MEDS ORDERED: Propofol 1,000 MG/100 ML VIAL IV ONE (16:18)
[2020-06-24] MEDS ORDERED: Vecuronium 10 MG VIAL IV PRN (16:20)
[2020-06-24] MEDS ORDERED: Propofol BOLUS 1,000 MG/100 ML VIAL IV PRN (16:30)
[2020-06-24] MEDS ORDERED: Ventilator Sedation Protocol 1 EACH FS SCH (16:30)
[2020-06-24] MEDS ORDERED: Morphine 2 MG/ML VIAL SLOW IVP PRN (16:30)
[2020-06-24] MEDS ORDERED: Fentanyl BOLUS 250 ML IVPB PRN (16:30)
[2020-06-24] MEDS ORDERED: DISCONTINUE PREVIOUS NARCOTIC PAIN MEDICATIONS AND BENZODIAZEPINES FS SCH (16:30)
[2020-06-24] MEDS ORDERED: Fentanyl 100 MCG/2 ML VIAL ONE (17:02)
[2020-06-24] MEDS ORDERED: Midazolam HCl 2 mg/2 ml Vial ONE (17:02)
[2020-06-24] MEDS ORDERED: Fentanyl CADD 100 ML ONE (17:41)
[2020-06-24 17:52] LABS: Actual Bicarbonate (HCO3a) 24.8 mEq/L (22-28); Base Excess (BEa) -0.6 mEq/L (-2.0 to +3.0); CO2 Tension 43.7 mmHg (35.0-45.0); Calcium, Ionized (arterial) 1.24 mmol/L (1.12-1.30); Carboxyhemoglobin (COHb) 0.4 gm% (0.0-3.0); Hemoglobin (Hb) 14.5 g/dL (14.0-18.0); O2 Tension (PaO2), arterial 70.8 mmHg (80.0-100.0); Potassium - ABG Lab 4.53 mmol/L (3.70-5.30); pH, Arterial 7.37 (7.35-7.45)
[2020-06-24 18:13] LABS: ALV-art Gradient 587.575 mmHg (0-20); Puncture Site LBA
[2020-06-24] MEDS: Propofol 1,000 MG/100 ML VIAL IV PRN (21:03)
[2020-06-24] MEDS: Amlodipine 5 MG TAB PO SCH (21:10)
[2020-06-25] MEDS: Cefepime 1 GM in Sodium Chloride 0.9% 100 ML IVPB SCH ×2 (01:20→13:37)
[2020-06-25] MEDS: Propofol 1,000 MG/100 ML VIAL IV PRN ×3 (01:20→20:30)
[2020-06-25 04:53] LABS: Hemoglobin 12.8 g/dL (14.0-18.0); Mean Corpuscular Hemoglobin 33.4 pg (27.0-31.0); Mean Platelet Volume 8.6 fL (7.4-10.4); Platelet Count 175 thou/uL (130-400); RBC Distribution Width 12.4 % (11.5-14.5); Red Blood Cell (RBC) Count 3.84 mill/uL (4.70-6.10); White Blood Cell (WBC) Count 7.2 thou/uL (4.8-10.8)
[2020-06-25 05:12] LABS: Anion Gap 16 mmol/L (10-20); BUN (Urea Nitrogen) 22 mg/dL (8.4-25.7); Calc. Creatinine Clearance 184 mL/min (70-130); Calcium 8.2 mg/dL (7.8-10.44); Carbon Dioxide 23 mmol/L (22-29); Chloride 108 mmol/L (98-107); Glucose 149 mg/dL (70-105); Potassium 4.6 mmol/L (3.5-5.1); Sodium 142 mmol/L (136-145)
[2020-06-25 05:28] LABS: Band 10 % (5-11); Lymphocytes 1 % (21-51); MDiff Complete? YES; Monocytes 4 % (0-10); Neutrophil 85 % (42-75)
[2020-06-25] MEDS: Lorazepam 2 MG/ML VIAL SLOW IVP PRN ×6 (05:58→21:06)
[2020-06-25] MEDS: Mometasone 200 MCG/Formoterol 5 MCG 120 PUFF INHALER INH SCH ×2 (07:17→19:03)
[2020-06-25 07:54] LABS: Base Excess (BEa) -1.6 mEq/L (-2.0 to +3.0); CO2 Tension 44.1 mmHg (35.0-45.0); Carboxyhemoglobin (COHb) 0.3 gm% (0.0-3.0); O2 Tension (PaO2), arterial 74.3 mmHg (80.0-100.0); Potassium - ABG Lab 4.44 mmol/L (3.70-5.30); pH, Arterial 7.35 (7.35-7.45)
[2020-06-25 07:55] LABS: ALV-art Gradient 512.275 mmHg (0-20); Puncture Site RRA
[2020-06-25] MEDS: Zinc Sulfate 220 MG CAP PO SCH (07:57)
[2020-06-25] MEDS: Enoxaparin Sodium 60 MG/0.6 ML SYRINGE SC SCH ×2 (07:57→21:06)
[2020-06-25] MEDS: Colchicine 0.6 MG TAB PO SCH ×2 (07:57→21:21)
[2020-06-25] MEDS: Cholecalciferol 1,000 UNITS (25 MCG) TAB PO SCH (07:57)
[2020-06-25] MEDS: Ascorbic Acid 500 mg Chewable Tablet PO SCH (07:58)
[2020-06-25] MEDS: Rosuvastatin 10 MG TAB PO SCH (07:58)
[2020-06-25] MEDS: Pantoprazole 40 MG VIAL IVP SCH ×2 (07:59→21:05)
[2020-06-25] MEDS: Losartan 25 MG TAB PO SCH (07:59)
[2020-06-25] MEDS: Dexamethasone 4 mg/ml Vial SLOW IVP SCH ×2 (07:59→21:06)
[2020-06-25] MEDS: Sodium Chloride 0.9% 1,000 ML IV SCH ×2 (08:20→13:52)
[2020-06-25] MEDS ORDERED: Fentanyl CADD 100 ML ONE (09:05)
[2020-06-25] MEDS: Fentanyl CADD 100 ML IV SCH (09:07)
[2020-06-25] MEDS: Azithromycin 500 MG in Sodium Chloride 0.9% 250 ML 250 ML IVPB SCH (13:52)
[2020-06-25] MEDS: Norepinephrine 8 MG/0.9% NS 250 ML IVPB SCH (16:50)
[2020-06-25] MEDS ORDERED: Norepinephrine 8 MG/0.9% NS 250 ML ONE (16:50)
[2020-06-25] MEDS: Amlodipine 5 MG TAB PO SCH (21:13)
[2020-06-26] MEDS: Cefepime 1 GM in Sodium Chloride 0.9% 100 ML IVPB SCH ×2 (01:02→13:21)
[2020-06-26] MEDS: Propofol 1,000 MG/100 ML VIAL IV PRN ×5 (01:04→20:04)
[2020-06-26] MEDS ORDERED: Fentanyl CADD 100 ML ONE ×2 (01:09→19:20)
[2020-06-26] MEDS: Fentanyl CADD 100 ML IV SCH ×2 (01:16→17:28)
[2020-06-26] MEDS: Lorazepam 2 MG/ML VIAL SLOW IVP PRN ×4 (04:48→20:04)
[2020-06-26 05:13] LABS: Hemoglobin 13.2 g/dL (14.0-18.0); Mean Corpuscular HGB CONC 33.3 g/dL (32.0-36.0); Mean Corpuscular Hemoglobin 33.9 pg (27.0-31.0); Mean Platelet Volume 8.3 fL (7.4-10.4); Platelet Count 217 thou/uL (130-400); RBC Distribution Width 12.9 % (11.5-14.5); Red Blood Cell (RBC) Count 3.88 mill/uL (4.70-6.10); White Blood Cell (WBC) Count 10.4 thou/uL (4.8-10.8)
[2020-06-26 05:27] LABS: Anion Gap 12 mmol/L (10-20); BUN (Urea Nitrogen) 25 mg/dL (8.4-25.7); CRP (Inflammatory) Less than 0.50 mg/dL (= or < 0.5); Calc. Creatinine Clearance 179 mL/min (70-130); Calcium 7.8 mg/dL (7.8-10.44); Carbon Dioxide 25 mmol/L (22-29); Chloride 107 mmol/L (98-107); Glucose 141 mg/dL (70-105); Potassium 4.8 mmol/L (3.5-5.1); Sodium 139 mmol/L (136-145)
[2020-06-26 05:50] LABS: Band 4 % (5-11); Lymphocytes 3 % (21-51); MDiff Complete? YES; Monocytes 6 % (0-10); Neutrophil 87 % (42-75)
[2020-06-26] MEDS: Mometasone 200 MCG/Formoterol 5 MCG 120 PUFF INHALER INH SCH ×2 (07:22→18:17)
[2020-06-26] MEDS: Enoxaparin Sodium 60 MG/0.6 ML SYRINGE SC SCH ×2 (08:59→20:05)
[2020-06-26] MEDS: Pantoprazole 40 MG VIAL IVP SCH ×2 (08:59→20:05)
[2020-06-26] MEDS: Dexamethasone 4 mg/ml Vial SLOW IVP SCH ×2 (09:00→20:05)
[2020-06-26] MEDS: Losartan 25 MG TAB PO SCH (09:02)
[2020-06-26] MEDS: Rosuvastatin 10 MG TAB PO SCH (09:02)
[2020-06-26] MEDS: Colchicine 0.6 MG TAB PO SCH ×2 (09:02→20:05)
[2020-06-26] MEDS: Ascorbic Acid 500 mg Chewable Tablet PO SCH (09:03)
[2020-06-26] MEDS: Zinc Sulfate 220 MG CAP PO SCH (09:03)
[2020-06-26] MEDS: Cholecalciferol 1,000 UNITS (25 MCG) TAB PO SCH (09:03)
[2020-06-26] MEDS: Azithromycin 500 MG in Sodium Chloride 0.9% 250 ML 250 ML IVPB SCH (13:21)
[2020-06-26] MEDS: Sodium Chloride 0.9% 1,000 ML IV SCH ×2 (15:24→20:32)
[2020-06-26] MEDS: Amlodipine 5 MG TAB PO SCH (20:06)
[2020-06-27] MEDS: Cefepime 1 GM in Sodium Chloride 0.9% 100 ML IVPB SCH ×2 (00:19→13:19)
[2020-06-27] MEDS: Lorazepam 2 MG/ML VIAL SLOW IVP PRN ×3 (00:19→23:32)
[2020-06-27] MEDS: Propofol 1,000 MG/100 ML VIAL IV PRN ×3 (00:19→10:45)
[2020-06-27 05:56] LABS: Anion Gap 11 mmol/L (10-20); BUN (Urea Nitrogen) 19 mg/dL (8.4-25.7); Calc. Creatinine Clearance 203 mL/min (70-130); Calcium 7.7 mg/dL (7.8-10.44); Carbon Dioxide 27 mmol/L (22-29); Chloride 105 mmol/L (98-107); Glucose 154 mg/dL (70-105); Potassium 5.1 mmol/L (3.5-5.1); Sodium 138 mmol/L (136-145)
[2020-06-27 07:01] LABS: Band 13 % (5-11); Hemoglobin 13.5 g/dL (14.0-18.0); Lymphocytes 2 % (21-51); MDiff Complete? YES; Mean Corpuscular HGB CONC 32.9 g/dL (32.0-36.0); Mean Corpuscular Hemoglobin 33.6 pg (27.0-31.0); Monocytes 7 % (0-10); Neutrophil 78 % (42-75); Platelet Count 212 thou/uL (130-400); RBC Distribution Width 12.8 % (11.5-14.5); Red Blood Cell (RBC) Count 4.03 mill/uL (4.70-6.10); White Blood Cell (WBC) Count 9.7 thou/uL (4.8-10.8)
[2020-06-27] MEDS: Mometasone 200 MCG/Formoterol 5 MCG 120 PUFF INHALER INH SCH ×2 (07:36→18:34)
[2020-06-27 07:39] LABS: Actual Bicarbonate (HCO3a) 26.3 mEq/L (22-28); Base Excess (BEa) -1.1 mEq/L (-2.0 to +3.0); CO2 Tension 55.4 mmHg (35.0-45.0); Calcium, Ionized (arterial) 1.19 mmol/L (1.12-1.30); Carboxyhemoglobin (COHb) 0.7 gm% (0.0-3.0); O2 Tension (PaO2), arterial 61.7 mmHg (80.0-100.0); Potassium - ABG Lab 4.84 mmol/L (3.70-5.30)
[2020-06-27 07:49] LABS: Puncture Site LRA
[2020-06-27] MEDS: Pantoprazole 40 MG VIAL IVP SCH ×2 (08:27→21:34)
[2020-06-27] MEDS: Enoxaparin Sodium 60 MG/0.6 ML SYRINGE SC SCH ×2 (08:27→21:32)
[2020-06-27] MEDS: Dexamethasone 4 mg/ml Vial SLOW IVP SCH ×2 (08:28→21:31)
[2020-06-27] MEDS: Cholecalciferol 1,000 UNITS (25 MCG) TAB PO SCH (08:29)
[2020-06-27] MEDS: Losartan 25 MG TAB PO SCH ×2 (08:29→08:47)
[2020-06-27] MEDS: Rosuvastatin 10 MG TAB PO SCH (08:29)
[2020-06-27] MEDS: Zinc Sulfate 220 MG CAP PO SCH (08:29)
[2020-06-27] MEDS: Ascorbic Acid 500 mg Chewable Tablet PO SCH (08:29)
[2020-06-27] MEDS: Colchicine 0.6 MG TAB PO SCH ×2 (08:31→21:31)
[2020-06-27] MEDS ORDERED: Fentanyl CADD 100 ML ONE (10:32)
[2020-06-27] MEDS: Azithromycin 500 MG in Sodium Chloride 0.9% 250 ML 250 ML IVPB SCH (13:58)
[2020-06-27] MEDS ORDERED: Polyethylene Glycol 3350 17 GM Packet PO SCH (16:15)
[2020-06-27] MEDS: Furosemide 40 MG/4 ML VIAL SLOW IVP SCH ×2 (17:02→23:32)
[2020-06-27] MEDS: Ascorbic Acid 2,000 MG in Sodium Chloride 0.9% 50 ML IVPB SCH ×2 (17:10→23:32)
[2020-06-27] MEDS: Sodium Chloride 0.9% 1,000 ML IV SCH (21:30)
[2020-06-27] MEDS: Amlodipine 5 MG TAB PO SCH (21:30)
[2020-06-27] MEDS: Metoprolol Tartrate 25 MG TAB PO SCH (21:31)
[2020-06-27] MEDS: Melatonin 3 MG TAB PO SCH (21:32)
[2020-06-28] MEDS ORDERED: Fentanyl CADD 100 ML ONE ×2 (00:12→13:14)
[2020-06-28] MEDS: Propofol 1,000 MG/100 ML VIAL IV PRN ×2 (00:26→08:19)
[2020-06-28] MEDS: Cefepime 1 GM in Sodium Chloride 0.9% 100 ML IVPB SCH ×2 (00:26→13:00)
[2020-06-28] MEDS: Fentanyl CADD 100 ML IV SCH (00:27)
[2020-06-28] MEDS: Norepinephrine 8 MG/0.9% NS 250 ML IVPB SCH ×2 (00:27→05:51)
[2020-06-28 04:57] LABS: Hemoglobin 13.5 g/dL (14.0-18.0); Mean Corpuscular HGB CONC 33.4 g/dL (32.0-36.0); Mean Platelet Volume 7.9 fL (7.4-10.4); Platelet Count 195 thou/uL (130-400); RBC Distribution Width 12.4 % (11.5-14.5); Red Blood Cell (RBC) Count 3.96 mill/uL (4.70-6.10); White Blood Cell (WBC) Count 7.7 thou/uL (4.8-10.8)
[2020-06-28 05:10] LABS: Anion Gap 11 mmol/L (10-20); BUN (Urea Nitrogen) 24 mg/dL (8.4-25.7); Calc. Creatinine Clearance 199 mL/min (70-130); Calcium 7.8 mg/dL (7.8-10.44); Carbon Dioxide 32 mmol/L (22-29); Chloride 99 mmol/L (98-107); Glucose 162 mg/dL (70-105); Potassium 4.4 mmol/L (3.5-5.1); Sodium 138 mmol/L (136-145)
[2020-06-28 05:18] LABS: Band 1 % (5-11); Lymphocytes 3 % (21-51); Monocytes 6 % (0-10); Neutrophil 88 % (42-75); Reactive Lymphocytes 2 % (0-10)
[2020-06-28 05:50] LABS: MDiff Complete? YES
[2020-06-28] MEDS: Ascorbic Acid 2,000 MG in Sodium Chloride 0.9% 50 ML IVPB SCH ×3 (05:50→17:23)
[2020-06-28] MEDS: Mometasone 200 MCG/Formoterol 5 MCG 120 PUFF INHALER INH SCH ×2 (07:00→18:16)
[2020-06-28 07:10] LABS: Actual Bicarbonate (HCO3a) 29.6 mEq/L (22-28); CO2 Tension 53.4 mmHg (35.0-45.0); Calcium, Ionized (arterial) 1.12 mmol/L (1.12-1.30); Carboxyhemoglobin (COHb) 0.7 gm% (0.0-3.0); Hemoglobin (Hb) 14.2 g/dL (14.0-18.0); O2 Tension (PaO2), arterial 76.1 mmHg (80.0-100.0); Potassium - ABG Lab 4.47 mmol/L (3.70-5.30); Puncture Site LRA; pH, Arterial 7.36 (7.35-7.45)
[2020-06-28] MEDS: Cholecalciferol 1,000 UNITS (25 MCG) TAB PO SCH (08:38)
[2020-06-28] MEDS: Thiamine 100 MG TAB PO SCH (08:38)
[2020-06-28] MEDS: Rosuvastatin 10 MG TAB PO SCH (08:38)
[2020-06-28] MEDS: Colchicine 0.6 MG TAB PO SCH ×2 (08:38→20:27)
[2020-06-28] MEDS: Enoxaparin Sodium 60 MG/0.6 ML SYRINGE SC SCH ×2 (08:38→20:27)
[2020-06-28] MEDS: Zinc Sulfate 220 MG CAP PO SCH (08:39)
[2020-06-28] MEDS: Dexamethasone 4 mg/ml Vial SLOW IVP SCH ×2 (08:39→20:27)
[2020-06-28] MEDS: Polyethylene Glycol 3350 17 GM Packet PER TUBE SCH (08:40)
[2020-06-28] MEDS: Pantoprazole 40 MG VIAL IVP SCH ×2 (08:40→20:27)
[2020-06-28] MEDS: Metoprolol Tartrate 25 MG TAB PO SCH (09:53)
[2020-06-28] MEDS ORDERED: clonazePAM 0.5 MG TAB PO SCH (10:15)
[2020-06-28] MEDS: Lorazepam 2 MG/ML VIAL SLOW IVP PRN (13:09)
[2020-06-28] MEDS: Azithromycin 500 MG in Sodium Chloride 0.9% 250 ML 250 ML IVPB SCH (14:10)
[2020-06-28] MEDS: Melatonin 3 MG TAB PO SCH (20:27)
[2020-06-28] MEDS: clonazePAM 0.5 MG TAB PO SCH (20:28)
[2020-06-29] MEDS: Cefepime 1 GM in Sodium Chloride 0.9% 100 ML IVPB SCH ×2 (00:04→13:04)
[2020-06-29] MEDS: Ascorbic Acid 2,000 MG in Sodium Chloride 0.9% 50 ML IVPB SCH ×5 (00:04→23:27)
[2020-06-29] MEDS: Sodium Chloride 0.9% 1,000 ML IV SCH ×2 (00:04→19:29)
[2020-06-29] MEDS ORDERED: Fentanyl CADD 100 ML ONE ×2 (02:09→14:33)
[2020-06-29 04:43] LABS: Hemoglobin 13.5 g/dL (14.0-18.0); Mean Corpuscular HGB CONC 33.8 g/dL (32.0-36.0); Mean Corpuscular Hemoglobin 33.9 pg (27.0-31.0); Mean Platelet Volume 8.1 fL (7.4-10.4); Platelet Count 161 thou/uL (130-400); RBC Distribution Width 12.4 % (11.5-14.5); Red Blood Cell (RBC) Count 3.98 mill/uL (4.70-6.10); White Blood Cell (WBC) Count 5.5 thou/uL (4.8-10.8)
[2020-06-29 04:55] LABS: Anion Gap 10 mmol/L (10-20); BUN (Urea Nitrogen) 24 mg/dL (8.4-25.7); Calc. Creatinine Clearance 210 mL/min (70-130); Calcium 7.7 mg/dL (7.8-10.44); Carbon Dioxide 32 mmol/L (22-29); Chloride 101 mmol/L (98-107); Glucose 137 mg/dL (70-105); Potassium 4.8 mmol/L (3.5-5.1); Sodium 138 mmol/L (136-145)
[2020-06-29 05:47] LABS: Band 2 % (5-11); Lymphocytes 5 % (21-51); MDiff Complete? YES; Monocytes 11 % (0-10); Neutrophil 82 % (42-75)
[2020-06-29] MEDS: Mometasone 200 MCG/Formoterol 5 MCG 120 PUFF INHALER INH SCH ×2 (07:11→18:45)
[2020-06-29 07:25] LABS: Actual Bicarbonate (HCO3a) 29.6 mEq/L (22-28); Base Excess (BEa) 3.9 mEq/L (-2.0 to +3.0); CO2 Tension 49.4 mmHg (35.0-45.0); Calcium, Ionized (arterial) 1.11 mmol/L (1.12-1.30); Carboxyhemoglobin (COHb) 0.3 gm% (0.0-3.0); Hemoglobin (Hb) 12.7 g/dL (14.0-18.0); O2 Tension (PaO2), arterial 60.5 mmHg (80.0-100.0); Potassium - ABG Lab 4.56 mmol/L (3.70-5.30)
[2020-06-29 07:26] LABS: Puncture Site LRA
[2020-06-29] MEDS ORDERED: Laxative Of Choice PO PRN (09:01)
[2020-06-29] MEDS: Rosuvastatin 10 MG TAB PO SCH (09:14)
[2020-06-29] MEDS: Thiamine 100 MG TAB PO SCH (09:15)
[2020-06-29] MEDS: clonazePAM 0.5 MG TAB PO SCH ×2 (09:16→19:50)
[2020-06-29] MEDS: Dexamethasone 4 mg/ml Vial SLOW IVP SCH (09:16)
[2020-06-29] MEDS: Colchicine 0.6 MG TAB PO SCH ×2 (09:16→19:50)
[2020-06-29] MEDS: Cholecalciferol 1,000 UNITS (25 MCG) TAB PO SCH (09:16)
[2020-06-29] MEDS: Zinc Sulfate 220 MG CAP PO SCH (09:16)
[2020-06-29] MEDS: Pantoprazole 40 MG VIAL IVP SCH ×2 (09:17→19:50)
[2020-06-29] MEDS: Enoxaparin Sodium 60 MG/0.6 ML SYRINGE SC SCH (09:46)
[2020-06-29] MEDS: Polyethylene Glycol 3350 17 GM Packet PER TUBE SCH (09:46)
[2020-06-29] MEDS: SODIUM CHLORIDE IVPB SCH (11:54)
[2020-06-29] MEDS: ADMIXTURE FEE IVPB SCH (11:54)
[2020-06-29] MEDS: DEXAMETHASONE IVPB SCH (11:54)
[2020-06-29] MEDS: Azithromycin 500 MG in Sodium Chloride 0.9% 250 ML 250 ML IVPB SCH (14:00)
[2020-06-29] MEDS: Lorazepam 2 MG/ML VIAL SLOW IVP PRN (15:44)
[2020-06-29] MEDS: Melatonin 3 MG TAB PO SCH (19:50)
[2020-06-29] MEDS ORDERED: Enoxaparin Sodium 60 MG/0.6 ML SYRINGE SC SCH (21:00)
[2020-06-30] MEDS: Cefepime 1 GM in Sodium Chloride 0.9% 100 ML IVPB SCH ×2 (00:43→13:13)
[2020-06-30] MEDS: Lorazepam 2 MG/ML VIAL SLOW IVP PRN ×3 (00:57→14:04)
[2020-06-30] MEDS ORDERED: Fentanyl CADD 100 ML ONE ×2 (03:03→16:16)
[2020-06-30] MEDS: Fentanyl CADD 100 ML IV SCH ×2 (03:04→16:29)
[2020-06-30 05:39] LABS: Hemoglobin 13.4 g/dL (14.0-18.0); Mean Corpuscular HGB CONC 34.1 g/dL (32.0-36.0); Mean Corpuscular Hemoglobin 34.1 pg (27.0-31.0); Mean Platelet Volume 7.9 fL (7.4-10.4); Platelet Count 171 thou/uL (130-400); RBC Distribution Width 12.3 % (11.5-14.5); Red Blood Cell (RBC) Count 3.92 mill/uL (4.70-6.10); White Blood Cell (WBC) Count 5.8 thou/uL (4.8-10.8)
[2020-06-30 05:46] LABS: Anion Gap 11 mmol/L (10-20); BUN (Urea Nitrogen) 22 mg/dL (8.4-25.7); Calc. Creatinine Clearance 223 mL/min (70-130); Calcium 7.9 mg/dL (7.8-10.44); Carbon Dioxide 30 mmol/L (22-29); Chloride 101 mmol/L (98-107); Glucose 120 mg/dL (70-105); Sodium 137 mmol/L (136-145)
[2020-06-30] MEDS: SODIUM CHLORIDE IVPB SCH (06:02)
[2020-06-30] MEDS: ADMIXTURE FEE IVPB SCH (06:02)
[2020-06-30] MEDS: DEXAMETHASONE IVPB SCH (06:02)
[2020-06-30] MEDS: Ascorbic Acid 2,000 MG in Sodium Chloride 0.9% 50 ML IVPB SCH ×3 (06:02→18:40)
[2020-06-30 06:13] LABS: Band 8 % (5-11); Lymphocytes 6 % (21-51); MDiff Complete? YES; Monocytes 14 % (0-10); Neutrophil 72 % (42-75)
[2020-06-30 07:35] LABS: Actual Bicarbonate (HCO3a) 29.1 mEq/L (22-28); Base Excess (BEa) 3.4 mEq/L (-2.0 to +3.0); CO2 Tension 48.8 mmHg (35.0-45.0); Calcium, Ionized (arterial) 1.16 mmol/L (1.12-1.30); Carboxyhemoglobin (COHb) 0.4 gm% (0.0-3.0); Hemoglobin (Hb) 13.5 g/dL (14.0-18.0); O2 Tension (PaO2), arterial 67.7 mmHg (80.0-100.0); Potassium - ABG Lab 4.85 mmol/L (3.70-5.30); pH, Arterial 7.39 (7.35-7.45)
[2020-06-30] MEDS: Mometasone 200 MCG/Formoterol 5 MCG 120 PUFF INHALER INH SCH ×2 (07:36→19:21)
[2020-06-30 07:52] LABS: Puncture Site RRA
[2020-06-30] MEDS: Zinc Sulfate 220 MG CAP PO SCH (08:37)
[2020-06-30] MEDS: Cholecalciferol 1,000 UNITS (25 MCG) TAB PO SCH (08:37)
[2020-06-30] MEDS: clonazePAM 0.5 MG TAB PO SCH ×2 (08:37→20:45)
[2020-06-30] MEDS: Colchicine 0.6 MG TAB PO SCH ×2 (08:37→20:45)
[2020-06-30] MEDS: Thiamine 100 MG TAB PO SCH (08:37)
[2020-06-30] MEDS: Rosuvastatin 10 MG TAB PO SCH (08:37)
[2020-06-30] MEDS: Pantoprazole 40 MG VIAL IVP SCH ×2 (08:38→20:45)
[2020-06-30] MEDS: Polyethylene Glycol 3350 17 GM Packet PER TUBE SCH (08:38)
[2020-06-30] MEDS: Sodium Chloride 0.9% 1,000 ML IV SCH (11:07)
[2020-06-30] MEDS ORDERED: Bisacodyl 10 MG SUPP PR PRN (11:50)
[2020-06-30] MEDS: Bisacodyl 10 MG SUPP PR PRN (15:08)
[2020-06-30] MEDS: Melatonin 3 MG TAB PO SCH (20:44)
[2020-07-01] MEDS: Ascorbic Acid 2,000 MG in Sodium Chloride 0.9% 50 ML IVPB SCH ×4 (00:09→18:20)
[2020-07-01] MEDS: Cefepime 1 GM in Sodium Chloride 0.9% 100 ML IVPB SCH ×2 (00:10→13:48)
[2020-07-01 04:47] LABS: Hemoglobin 12.7 g/dL (14.0-18.0); Mean Corpuscular HGB CONC 32.8 g/dL (32.0-36.0); Mean Corpuscular Hemoglobin 32.7 pg (27.0-31.0); Mean Corpuscular Volume 99.7 fL (78.0-98.0); Mean Platelet Volume 7.7 fL (7.4-10.4); Platelet Count 185 thou/uL (130-400); RBC Distribution Width 12.5 % (11.5-14.5); Red Blood Cell (RBC) Count 3.88 mill/uL (4.70-6.10); White Blood Cell (WBC) Count 6.8 thou/uL (4.8-10.8)
[2020-07-01 05:03] LABS: Anion Gap 9 mmol/L (10-20); BUN (Urea Nitrogen) 25 mg/dL (8.4-25.7); Calc. Creatinine Clearance 213 mL/min (70-130); Calcium 8.1 mg/dL (7.8-10.44); Carbon Dioxide 31 mmol/L (22-29); Chloride 101 mmol/L (98-107); Glucose 125 mg/dL (70-105); Potassium 5.1 mmol/L (3.5-5.1); Sodium 136 mmol/L (136-145)
[2020-07-01] MEDS: Lorazepam 2 MG/ML VIAL SLOW IVP PRN (05:13)
[2020-07-01 05:21] LABS: Band 12 % (5-11); Lymphocytes 9 % (21-51); MDiff Complete? YES; Monocytes 9 % (0-10); Neutrophil 70 % (42-75)
[2020-07-01] MEDS ORDERED: Fentanyl CADD 100 ML ONE ×2 (06:16→20:37)
[2020-07-01] MEDS: Mometasone 200 MCG/Formoterol 5 MCG 120 PUFF INHALER INH SCH ×2 (07:00→18:54)
[2020-07-01 07:43] LABS: Actual Bicarbonate (HCO3a) 28.2 mEq/L (22-28); Base Excess (BEa) 3.1 mEq/L (-2.0 to +3.0); CO2 Tension 45.2 mmHg (35.0-45.0); Calcium, Ionized (arterial) 1.17 mmol/L (1.12-1.30); Carboxyhemoglobin (COHb) 1.1 gm% (0.0-3.0); Hemoglobin (Hb) 13.1 g/dL (14.0-18.0); Potassium - ABG Lab 4.97 mmol/L (3.70-5.30); pH, Arterial 7.41 (7.35-7.45)
[2020-07-01 07:50] LABS: O2 Tension (PaO2), arterial 54.3 mmHg (80.0-100.0); Puncture Site RRA
[2020-07-01] MEDS ORDERED: Vecuronium 10 MG VIAL ONE (08:04)
[2020-07-01] MEDS ORDERED: Lidocaine 1% w/Epinephrine 1:100K 20 ML VIAL ONE (08:04)
[2020-07-01] MEDS ORDERED: Fentanyl 100 MCG/2 ML VIAL SLOW IVP SCH ×2 (08:15)
[2020-07-01] MEDS ORDERED: Vecuronium 10 MG VIAL IV SCH (08:15)
[2020-07-01] MEDS ORDERED: Midazolam HCl 2 mg/2 ml Vial FS SCH ×2 (08:15)
[2020-07-01] MEDS ORDERED: Lidocaine 1% w/Epinephrine 1:100K 20 ML VIAL FS SCH (08:15)
[2020-07-01] MEDS: Pantoprazole 40 MG VIAL IVP SCH ×2 (08:48→20:11)
[2020-07-01] MEDS: DEXAMETHASONE IVPB SCH (08:54)
[2020-07-01] MEDS: ADMIXTURE FEE IVPB SCH (08:54)
[2020-07-01] MEDS: SODIUM CHLORIDE IVPB SCH (08:54)
[2020-07-01] MEDS ORDERED: CEFAZOLIN 2 GM in Premix Bag 1 BAG IVPB SCH (09:00)
[2020-07-01] MEDS: Polyethylene Glycol 3350 17 GM Packet PER TUBE SCH (14:13)
[2020-07-01] MEDS: Zinc Sulfate 220 MG CAP PO SCH (14:13)
[2020-07-01] MEDS: Rosuvastatin 10 MG TAB PO SCH (14:14)
[2020-07-01] MEDS: Cholecalciferol 1,000 UNITS (25 MCG) TAB PO SCH (14:14)
[2020-07-01] MEDS: Thiamine 100 MG TAB PO SCH (14:14)
[2020-07-01] MEDS: Colchicine 0.6 MG TAB PO SCH ×2 (14:14→20:10)
[2020-07-01] MEDS: clonazePAM 0.5 MG TAB PO SCH ×2 (14:15→20:10)
[2020-07-01] MEDS: Sodium Chloride 0.9% 1,000 ML IV SCH (14:16)
[2020-07-01 16:36] LABS: A. flavus Negative (Neg:<1:1); A. fumigatus Negative (Neg:<1:1); A. niger Negative (Neg:<1:1); Blastomyces AB Negative (Neg:<1:1)
[2020-07-01] MEDS ORDERED: Losartan 25 MG TAB PO SCH (18:15)
[2020-07-01] MEDS: Melatonin 3 MG TAB PO SCH (20:10)
[2020-07-01] MEDS: Enoxaparin Sodium 60 MG/0.6 ML SYRINGE SC SCH (20:11)
[2020-07-02] MEDS: Ascorbic Acid 2,000 MG in Sodium Chloride 0.9% 50 ML IVPB SCH ×5 (00:01→23:49)
[2020-07-02] MEDS: Cefepime 1 GM in Sodium Chloride 0.9% 100 ML IVPB SCH (00:08)
[2020-07-02 04:43] LABS: #Lymphocytes 0.5 thou/uL (1.20-3.40); #Monocytes 0.7 thou/uL (0.11-0.59); #Neutrophils 6.8 thou/uL (1.40-6.50); %Basophils 0.1 % (0.0-1.0); %Eosinophils 0.3 % (0.0-10.0); %Lymphocytes 6.2 % (21.0-51.0); %Monocytes 8.4 % (0.0-10.0); Hemoglobin 13.1 g/dL (14.0-18.0); Mean Corpuscular HGB CONC 33.6 g/dL (32.0-36.0); Mean Corpuscular Hemoglobin 33.2 pg (27.0-31.0); Mean Corpuscular Volume 98.8 fL (78.0-98.0); Platelet Count 185 thou/uL (130-400); RBC Distribution Width 12.4 % (11.5-14.5); Red Blood Cell (RBC) Count 3.95 mill/uL (4.70-6.10)
[2020-07-02 05:06] LABS: Anion Gap 12 mmol/L (10-20); BUN (Urea Nitrogen) 23 mg/dL (8.4-25.7); Calc. Creatinine Clearance 222 mL/min (70-130); Calcium 8.1 mg/dL (7.8-10.44); Carbon Dioxide 27 mmol/L (22-29); Chloride 100 mmol/L (98-107); Glucose 117 mg/dL (70-105); Potassium 4.6 mmol/L (3.5-5.1); Sodium 134 mmol/L (136-145)
[2020-07-02] MEDS: DEXAMETHASONE IVPB SCH (07:19)
[2020-07-02] MEDS: SODIUM CHLORIDE IVPB SCH (07:19)
[2020-07-02] MEDS: ADMIXTURE FEE IVPB SCH (07:19)
[2020-07-02 08:03] LABS: Base Excess (BEa) 3.9 mEq/L (-2.0 to +3.0); CO2 Tension 40.4 mmHg (35.0-45.0); Calcium, Ionized (arterial) 1.15 mmol/L (1.12-1.30); Hemoglobin (Hb) 13.7 g/dL (14.0-18.0); O2 Tension (PaO2), arterial 69.6 mmHg (80.0-100.0); pH, Arterial 7.46 (7.35-7.45)
[2020-07-02 08:06] LABS: Puncture Site LRA
[2020-07-02] MEDS: Mometasone 200 MCG/Formoterol 5 MCG 120 PUFF INHALER INH SCH ×2 (08:29→18:58)
[2020-07-02] MEDS: Sodium Chloride 0.9% 1,000 ML IV SCH ×2 (08:32→18:39)
[2020-07-02] MEDS: Enoxaparin Sodium 60 MG/0.6 ML SYRINGE SC SCH ×2 (08:49→20:01)
[2020-07-02] MEDS: Pantoprazole 40 MG VIAL IVP SCH ×2 (08:50→20:01)
[2020-07-02] MEDS: Thiamine 100 MG TAB PO SCH (08:51)
[2020-07-02] MEDS: Rosuvastatin 10 MG TAB PO SCH (08:51)
[2020-07-02] MEDS: Zinc Sulfate 220 MG CAP PO SCH (08:51)
[2020-07-02] MEDS: clonazePAM 0.5 MG TAB PO SCH ×2 (08:51→20:02)
[2020-07-02] MEDS: Acetaminophen 325 MG TAB PO PRN ×2 (08:53→15:08)
[2020-07-02] MEDS: Polyethylene Glycol 3350 17 GM Packet PER TUBE SCH (08:53)
[2020-07-02] MEDS: Losartan 25 MG TAB PO SCH (08:55)
[2020-07-02] MEDS: Cholecalciferol 1,000 UNITS (25 MCG) TAB PO SCH (08:56)
[2020-07-02] MEDS: Colchicine 0.6 MG TAB PO SCH ×2 (08:59→20:02)
[2020-07-02] MEDS ORDERED: hydrALAZINE 20 MG/ML VIAL SLOW IVP PRN (12:30)
[2020-07-02] MEDS ORDERED: HYDROcodone/Acetaminophen 10/325 mg Tablet PER TUBE PRN (13:35)
[2020-07-02] MEDS: ALPRAZolam 0.5 MG TAB PER TUBE PRN ×2 (15:08→23:48)
[2020-07-02] MEDS: HYDROcodone/Acetaminophen 5/325 mg Tablet PO PRN (15:08)
[2020-07-02] MEDS: Bisacodyl 10 MG SUPP PR PRN (15:09)
[2020-07-02] MEDS: Melatonin 3 MG TAB PO SCH (20:01)
[2020-07-03 05:55] LABS: Hemoglobin 14.1 g/dL (14.0-18.0); Lymphocytes 6 % (21-51); MDiff Complete? YES; Mean Corpuscular HGB CONC 33.6 g/dL (32.0-36.0); Mean Corpuscular Hemoglobin 32.9 pg (27.0-31.0); Mean Platelet Volume 8.5 fL (7.4-10.4); Metamyelocyte 2 % (0-0); Monocytes 5 % (0-10); Neutrophil 87 % (42-75); Platelet Count 180 thou/uL (130-400); Platelet Morphology Comment Appears Adequate; RBC Distribution Width 12.6 % (11.5-14.5); Red Blood Cell (RBC) Count 4.28 mill/uL (4.70-6.10); White Blood Cell (WBC) Count 7.2 thou/uL (4.8-10.8)
[2020-07-03 06:03] LABS: Anion Gap 9 mmol/L (10-20); BUN (Urea Nitrogen) 26 mg/dL (8.4-25.7); Calc. Creatinine Clearance 228 mL/min (70-130); Calcium 8.6 mg/dL (7.8-10.44); Carbon Dioxide 27 mmol/L (22-29); Chloride 103 mmol/L (98-107); Glucose 147 mg/dL (70-105); Potassium 4.3 mmol/L (3.5-5.1); Sodium 135 mmol/L (136-145)
[2020-07-03] MEDS: DEXAMETHASONE IVPB SCH (06:34)
[2020-07-03] MEDS: ADMIXTURE FEE IVPB SCH (06:34)
[2020-07-03] MEDS: SODIUM CHLORIDE IVPB SCH (06:34)
[2020-07-03] MEDS: Mometasone 200 MCG/Formoterol 5 MCG 120 PUFF INHALER INH SCH ×2 (07:22→19:15)
[2020-07-03] MEDS: Ascorbic Acid 2,000 MG in Sodium Chloride 0.9% 50 ML IVPB SCH ×2 (07:34→12:08)
[2020-07-03 07:49] LABS: Actual Bicarbonate (HCO3a) 27.1 mEq/L (22-28); Base Excess (BEa) 3.9 mEq/L (-2.0 to +3.0); CO2 Tension 36.4 mmHg (35.0-45.0); Calcium, Ionized (arterial) 1.16 mmol/L (1.12-1.30); Carboxyhemoglobin (COHb) 0.7 gm% (0.0-3.0); Hemoglobin (Hb) 13.8 g/dL (14.0-18.0); O2 Tension (PaO2), arterial 62.4 mmHg (80.0-100.0); Potassium - ABG Lab 4.22 mmol/L (3.70-5.30); pH, Arterial 7.49 (7.35-7.45)
[2020-07-03 07:55] LABS: Puncture Site RRA
[2020-07-03] MEDS: Guaifenesin DM 100-10/5 ML UDCUP PO PRN (08:27)
[2020-07-03] MEDS: Polyethylene Glycol 3350 17 GM Packet PER TUBE SCH (08:28)
[2020-07-03] MEDS: Enoxaparin Sodium 60 MG/0.6 ML SYRINGE SC SCH ×2 (08:28→21:20)
[2020-07-03] MEDS: Rosuvastatin 10 MG TAB PO SCH (08:29)
[2020-07-03] MEDS: Cholecalciferol 1,000 UNITS (25 MCG) TAB PO SCH (08:29)
[2020-07-03] MEDS: Pantoprazole 40 MG VIAL IVP SCH ×2 (08:29→21:21)
[2020-07-03] MEDS: Losartan 25 MG TAB PO SCH (08:30)
[2020-07-03] MEDS: Acetaminophen 325 MG TAB PO PRN (08:31)
[2020-07-03] MEDS: Thiamine 100 MG TAB PO SCH (08:31)
[2020-07-03] MEDS: Zinc Sulfate 220 MG CAP PO SCH (08:31)
[2020-07-03] MEDS: HYDROcodone/Acetaminophen 5/325 mg Tablet PO PRN ×2 (08:32→14:34)
[2020-07-03] MEDS: clonazePAM 0.5 MG TAB PO SCH (08:32)
[2020-07-03] MEDS: Colchicine 0.6 MG TAB PO SCH ×2 (08:32→21:20)
[2020-07-03] MEDS: ALPRAZolam 0.5 MG TAB PER TUBE PRN ×2 (08:33→14:35)
[2020-07-03] MEDS ORDERED: ALPRAZolam 0.5 MG TAB PO PRN (15:23)
[2020-07-03] MEDS ORDERED: Zolpidem Tartrate 5 MG TAB PER TUBE PRN (15:42)
[2020-07-03] MEDS: ALPRAZolam 0.5 MG TAB PER TUBE SCH ×2 (16:28→21:20)
[2020-07-03] MEDS: Melatonin 3 MG TAB PO SCH (21:20)
[2020-07-03] MEDS: diphenhydrAMINE 12.5 MG/5 ML UDCUP PER TUBE SCH (21:20)
[2020-07-04 05:49] LABS: Anion Gap 10 mmol/L (10-20); BUN (Urea Nitrogen) 25 mg/dL (8.4-25.7); Calc. Creatinine Clearance 249 mL/min (70-130); Carbon Dioxide 26 mmol/L (22-29); Chloride 101 mmol/L (98-107); Glucose 119 mg/dL (70-105); Potassium 4.3 mmol/L (3.5-5.1); Sodium 133 mmol/L (136-145)
[2020-07-04 05:57] LABS: Hemoglobin 12.7 g/dL (14.0-18.0); Lymphocytes 10 % (21-51); MDiff Complete? YES; Mean Corpuscular HGB CONC 34.5 g/dL (32.0-36.0); Mean Corpuscular Hemoglobin 34.4 pg (27.0-31.0); Mean Corpuscular Volume 99.6 fL (78.0-98.0); Mean Platelet Volume 8.2 fL (7.4-10.4); Metamyelocyte 1 % (0-0); Monocytes 5 % (0-10); Neutrophil 84 % (42-75); Platelet Count 181 thou/uL (130-400); Platelet Morphology Comment Appears Adequate; RBC Distribution Width 12.6 % (11.5-14.5); RBC Morphology Normal; White Blood Cell (WBC) Count 7.3 thou/uL (4.8-10.8)
[2020-07-04] MEDS: Mometasone 200 MCG/Formoterol 5 MCG 120 PUFF INHALER INH SCH ×2 (07:19→19:25)
[2020-07-04 07:42] LABS: Actual Bicarbonate (HCO3a) 23.5 mEq/L (22-28); Base Excess (BEa) 0.5 mEq/L (-2.0 to +3.0); CO2 Tension 33.2 mmHg (35.0-45.0); Calcium, Ionized (arterial) 1.21 mmol/L (1.12-1.30); Carboxyhemoglobin (COHb) 0.9 gm% (0.0-3.0); Hemoglobin (Hb) 13.6 g/dL (14.0-18.0); O2 Tension (PaO2), arterial 71.7 mmHg (80.0-100.0); pH, Arterial 7.47 (7.35-7.45)
[2020-07-04 07:43] LABS: Puncture Site LRA
[2020-07-04] MEDS: Enoxaparin Sodium 60 MG/0.6 ML SYRINGE SC SCH ×2 (09:04→22:08)
[2020-07-04] MEDS: Pantoprazole 40 MG VIAL IVP SCH ×2 (09:04→22:07)
[2020-07-04] MEDS: Colchicine 0.6 MG TAB PO SCH ×2 (09:05→21:44)
[2020-07-04] MEDS: Ascorbic Acid 500 mg Chewable Tablet PER TUBE SCH (09:05)
[2020-07-04] MEDS: Polyethylene Glycol 3350 17 GM Packet PER TUBE SCH (09:05)
[2020-07-04] MEDS: Rosuvastatin 10 MG TAB PO SCH (09:05)
[2020-07-04] MEDS: ALPRAZolam 0.5 MG TAB PER TUBE SCH ×3 (09:05→21:43)
[2020-07-04] MEDS: Cholecalciferol 1,000 UNITS (25 MCG) TAB PO SCH (09:06)
[2020-07-04] MEDS: Losartan 25 MG TAB PO SCH (09:06)
[2020-07-04] MEDS: Thiamine 100 MG TAB PO SCH (09:06)
[2020-07-04] MEDS: Zinc Sulfate 220 MG CAP PO SCH (09:06)
[2020-07-04] MEDS ORDERED: Temazepam 15 MG CAP PER TUBE PRN (10:21)
[2020-07-04] MEDS: DEXAMETHASONE IVPB SCH (10:40)
[2020-07-04] MEDS: SODIUM CHLORIDE IVPB SCH (10:40)
[2020-07-04] MEDS: ADMIXTURE FEE IVPB SCH (10:40)
[2020-07-04] MEDS ORDERED: Lorazepam 2 MG/ML VIAL SLOW IVP PRN (16:50)
[2020-07-04] MEDS: Melatonin 3 MG TAB PO SCH (21:45)
[2020-07-04] MEDS: diphenhydrAMINE 12.5 MG/5 ML UDCUP PER TUBE SCH ×2 (21:46)
[2020-07-05 03:51] LABS: #Lymphocytes 0.5 thou/uL (1.20-3.40); #Monocytes 0.8 thou/uL (0.11-0.59); #Neutrophils 6.8 thou/uL (1.40-6.50); %Basophils 0.5 % (0.0-1.0); %Eosinophils 0.4 % (0.0-10.0); %Monocytes 9.5 % (0.0-10.0); %Neutrophils 83.5 % (42.0-75.0); Hemoglobin 12.2 g/dL (14.0-18.0); Mean Corpuscular HGB CONC 33.7 g/dL (32.0-36.0); Mean Corpuscular Hemoglobin 33.5 pg (27.0-31.0); Mean Corpuscular Volume 99.2 fL (78.0-98.0); Mean Platelet Volume 8.3 fL (7.4-10.4); Platelet Count 178 thou/uL (130-400); RBC Distribution Width 12.7 % (11.5-14.5); Red Blood Cell (RBC) Count 3.66 mill/uL (4.70-6.10); White Blood Cell (WBC) Count 8.1 thou/uL (4.8-10.8)
[2020-07-05 04:10] LABS: Anion Gap 11 mmol/L (10-20); BUN (Urea Nitrogen) 27 mg/dL (8.4-25.7); Calc. Creatinine Clearance 233 mL/min (70-130); Carbon Dioxide 26 mmol/L (22-29); Chloride 101 mmol/L (98-107); Glucose 143 mg/dL (70-105); Potassium 4.2 mmol/L (3.5-5.1); Sodium 134 mmol/L (136-145)
[2020-07-05 07:40] LABS: Actual Bicarbonate (HCO3a) 25.7 mEq/L (22-28); Base Excess (BEa) 2.1 mEq/L (-2.0 to +3.0); CO2 Tension 36.6 mmHg (35.0-45.0); Carboxyhemoglobin (COHb) 0.6 gm% (0.0-3.0); Hemoglobin (Hb) 12.8 g/dL (14.0-18.0); O2 Tension (PaO2), arterial 80.1 mmHg (80.0-100.0); Potassium - ABG Lab 4.16 mmol/L (3.70-5.30); pH, Arterial 7.46 (7.35-7.45)
[2020-07-05 07:42] LABS: Puncture Site RRA
[2020-07-05 07:51] LABS: Hemoglobin 12.4 g/dL (14.0-18.0); Mean Corpuscular HGB CONC 33.2 g/dL (32.0-36.0); Mean Corpuscular Hemoglobin 33.2 pg (27.0-31.0); Mean Platelet Volume 8.8 fL (7.4-10.4); Platelet Count 180 thou/uL (130-400); RBC Distribution Width 12.9 % (11.5-14.5); Red Blood Cell (RBC) Count 3.72 mill/uL (4.70-6.10)
[2020-07-05] MEDS: Mometasone 200 MCG/Formoterol 5 MCG 120 PUFF INHALER INH SCH ×2 (07:59→19:28)
[2020-07-05 08:02] LABS: Band 9 % (5-11); Eosinophils 1 % (0-10); Lymphocytes 3 % (21-51); MDiff Complete? YES; Metamyelocyte 2 % (0-0); Monocytes 9 % (0-10); Neutrophil 73 % (42-75); Platelet Morphology Comment Appears Adequate; Polychromasia SLIGHT = 2-3 cells (100X) (0-2/hpf); Reactive Lymphocytes 3 % (0-10)
[2020-07-05] MEDS: Rosuvastatin 10 MG TAB PO SCH (08:35)
[2020-07-05] MEDS: Thiamine 100 MG TAB PO SCH (08:36)
[2020-07-05] MEDS: Pantoprazole 40 MG VIAL IVP SCH ×2 (08:36→21:43)
[2020-07-05] MEDS: Enoxaparin Sodium 60 MG/0.6 ML SYRINGE SC SCH ×2 (08:36→21:44)
[2020-07-05] MEDS: Ascorbic Acid 500 mg Chewable Tablet PER TUBE SCH (08:36)
[2020-07-05] MEDS: ALPRAZolam 0.5 MG TAB PER TUBE SCH ×3 (08:36→21:45)
[2020-07-05] MEDS: Colchicine 0.6 MG TAB PO SCH (08:37)
[2020-07-05] MEDS: Zinc Sulfate 220 MG CAP PO SCH (08:37)
[2020-07-05] MEDS: Losartan 25 MG TAB PO SCH (08:37)
[2020-07-05] MEDS: Cholecalciferol 1,000 UNITS (25 MCG) TAB PO SCH (08:37)
[2020-07-05] MEDS: Polyethylene Glycol 3350 17 GM Packet PER TUBE SCH (09:04)
[2020-07-05] MEDS ORDERED: Diphenoxylate HCl/Atropine Tablet PO PRN (09:08)
[2020-07-05] MEDS: Dexamethasone 4 mg/ml Vial SLOW IVP SCH (09:45)
[2020-07-05] MEDS: diphenhydrAMINE 12.5 MG/5 ML UDCUP PER TUBE SCH (21:44)
[2020-07-05] MEDS: Melatonin 3 MG TAB PO SCH (21:44)
[2020-07-05] MEDS: clonazePAM 0.5 MG TAB PO SCH (21:45)
[2020-07-06 06:52] LABS: #Eosinphils 0.1 thou/uL (0.0-0.7); #Lymphocytes 1.3 thou/uL (1.20-3.40); #Neutrophils 4.7 thou/uL (1.40-6.50); %Basophils 0.5 % (0.0-1.0); %Eosinophils 1.7 % (0.0-10.0); %Lymphocytes 18.7 % (21.0-51.0); %Monocytes 13.9 % (0.0-10.0); %Neutrophils 65.3 % (42.0-75.0); Hemoglobin 12.4 g/dL (14.0-18.0); Mean Corpuscular HGB CONC 34.6 g/dL (32.0-36.0); Mean Corpuscular Hemoglobin 34.4 pg (27.0-31.0); Mean Corpuscular Volume 99.6 fL (78.0-98.0); Mean Platelet Volume 8.1 fL (7.4-10.4); Platelet Count 156 thou/uL (130-400); RBC Distribution Width 12.9 % (11.5-14.5); White Blood Cell (WBC) Count 7.2 thou/uL (4.8-10.8)
[2020-07-06 07:11] LABS: Anion Gap 9 mmol/L (10-20); BUN (Urea Nitrogen) 29 mg/dL (8.4-25.7); Calc. Creatinine Clearance 220 mL/min (70-130); Calcium 8.2 mg/dL (7.8-10.44); Carbon Dioxide 27 mmol/L (22-29); Chloride 104 mmol/L (98-107); Glucose 107 mg/dL (70-105); Sodium 136 mmol/L (136-145)
[2020-07-06] MEDS: Mometasone 200 MCG/Formoterol 5 MCG 120 PUFF INHALER INH SCH ×2 (07:54→19:00)
[2020-07-06 08:03] LABS: Actual Bicarbonate (HCO3a) 25.9 mEq/L (22-28); CO2 Tension 37.7 mmHg (35.0-45.0); Calcium, Ionized (arterial) 1.17 mmol/L (1.12-1.30); Carboxyhemoglobin (COHb) 0.5 gm% (0.0-3.0); Hemoglobin (Hb) 12.7 g/dL (14.0-18.0); O2 Tension (PaO2), arterial 67.1 mmHg (80.0-100.0); Potassium - ABG Lab 4.11 mmol/L (3.70-5.30); pH, Arterial 7.45 (7.35-7.45)
[2020-07-06 08:04] LABS: Puncture Site LRA
[2020-07-06 08:05] LABS: ALV-art Gradient 135.325 mmHg (0-20)
[2020-07-06] MEDS: Rosuvastatin 10 MG TAB PO SCH (08:07)
[2020-07-06] MEDS: Losartan 25 MG TAB PO SCH (08:08)
[2020-07-06] MEDS: Ascorbic Acid 500 mg Chewable Tablet PER TUBE SCH (08:08)
[2020-07-06] MEDS: Dexamethasone 4 mg/ml Vial SLOW IVP SCH (08:09)
[2020-07-06] MEDS: Cholecalciferol 1,000 UNITS (25 MCG) TAB PO SCH (08:09)
[2020-07-06] MEDS: Zinc Sulfate 220 MG CAP PO SCH (08:09)
[2020-07-06] MEDS: Thiamine 100 MG TAB PO SCH (08:09)
[2020-07-06] MEDS: Pantoprazole 40 MG VIAL IVP SCH (08:10)
[2020-07-06] MEDS: Enoxaparin Sodium 60 MG/0.6 ML SYRINGE SC SCH (08:13)
[2020-07-06] MEDS: ALPRAZolam 0.5 MG TAB PER TUBE SCH ×3 (08:13→20:03)
[2020-07-06] MEDS: Polyethylene Glycol 3350 17 GM Packet PER TUBE SCH (08:14)
[2020-07-06] MEDS: Apixaban 5 MG TAB PO SCH ×2 (09:36→20:03)
[2020-07-06] MEDS: Melatonin 3 MG TAB PO SCH (20:03)
[2020-07-06] MEDS: Pantoprazole 40 MG GRANULES PACKET PER TUBE SCH (20:03)
[2020-07-06] MEDS: clonazePAM 0.5 MG TAB PO SCH (20:03)
[2020-07-06] MEDS: diphenhydrAMINE 12.5 MG/5 ML UDCUP PER TUBE SCH (20:27)
[2020-07-07 04:04] LABS: Band 3 % (5-11); Hemoglobin 11.9 g/dL (14.0-18.0); Lymphocytes 16 % (21-51); MDiff Complete? YES; Mean Corpuscular HGB CONC 33.8 g/dL (32.0-36.0); Mean Corpuscular Hemoglobin 33.5 pg (27.0-31.0); Mean Corpuscular Volume 99.1 fL (78.0-98.0); Mean Platelet Volume 8.1 fL (7.4-10.4); Metamyelocyte 2 % (0-0); Monocytes 11 % (0-10); Myelocyte 1 % (0-0); Neutrophil 67 % (42-75); Platelet Count 141 thou/uL (130-400); Platelet Morphology Comment Appears Adequate; Red Blood Cell (RBC) Count 3.56 mill/uL (4.70-6.10); White Blood Cell (WBC) Count 7.3 thou/uL (4.8-10.8)
[2020-07-07] MEDS: Rosuvastatin 10 MG TAB PO SCH (08:15)
[2020-07-07] MEDS: Losartan 25 MG TAB PO SCH (08:15)
[2020-07-07] MEDS: Apixaban 5 MG TAB PO SCH ×2 (08:15→22:12)
[2020-07-07] MEDS: ALPRAZolam 0.5 MG TAB PER TUBE SCH ×3 (08:15→22:12)
[2020-07-07] MEDS: Ascorbic Acid 500 mg Chewable Tablet PER TUBE SCH (08:15)
[2020-07-07] MEDS: Cholecalciferol 1,000 UNITS (25 MCG) TAB PO SCH (08:16)
[2020-07-07] MEDS: Polyethylene Glycol 3350 17 GM Packet PER TUBE SCH (08:16)
[2020-07-07] MEDS: Thiamine 100 MG TAB PO SCH (08:16)
[2020-07-07] MEDS: Dexamethasone 4 mg/ml Vial SLOW IVP SCH ×2 (08:16→08:57)
[2020-07-07] MEDS: Pantoprazole 40 MG GRANULES PACKET PER TUBE SCH ×2 (08:16→22:12)
[2020-07-07] MEDS: Zinc Sulfate 220 MG CAP PO SCH (08:16)
[2020-07-07] MEDS: Mometasone 200 MCG/Formoterol 5 MCG 120 PUFF INHALER INH SCH ×2 (08:32→18:36)
[2020-07-07] MEDS: Melatonin 3 MG TAB PO SCH (22:12)
[2020-07-07] MEDS: clonazePAM 0.5 MG TAB PO SCH (22:12)
[2020-07-07] MEDS: diphenhydrAMINE 12.5 MG/5 ML UDCUP PER TUBE SCH (22:14)
[2020-07-08] MEDS: Ascorbic Acid 500 mg Chewable Tablet PER TUBE SCH (07:55)
[2020-07-08] MEDS: Mometasone 200 MCG/Formoterol 5 MCG 120 PUFF INHALER INH SCH ×2 (08:00→19:05)
[2020-07-08] MEDS: Zinc Sulfate 220 MG CAP PO SCH (08:41)
[2020-07-08] MEDS: Pantoprazole 40 MG GRANULES PACKET PER TUBE SCH ×2 (08:43→21:55)
[2020-07-08] MEDS: Rosuvastatin 10 MG TAB PO SCH (08:43)
[2020-07-08] MEDS: Cholecalciferol 1,000 UNITS (25 MCG) TAB PO SCH (08:43)
[2020-07-08] MEDS: ALPRAZolam 0.5 MG TAB PER TUBE SCH ×3 (08:44→21:55)
[2020-07-08] MEDS: Dexamethasone 4 mg/ml Vial SLOW IVP SCH (08:44)
[2020-07-08] MEDS: Thiamine 100 MG TAB PO SCH (08:44)
[2020-07-08] MEDS: Losartan 25 MG TAB PO SCH (08:45)
[2020-07-08] MEDS: Apixaban 5 MG TAB PO SCH ×2 (08:48→21:55)
[2020-07-08] MEDS: Polyethylene Glycol 3350 17 GM Packet PER TUBE SCH (09:39)
[2020-07-08] MEDS: clonazePAM 0.5 MG TAB PO SCH (21:55)
[2020-07-08] MEDS: Melatonin 3 MG TAB PO SCH (21:55)
[2020-07-08] MEDS: diphenhydrAMINE 12.5 MG/5 ML UDCUP PER TUBE SCH (21:55)
[2020-07-09] MEDS: Mometasone 200 MCG/Formoterol 5 MCG 120 PUFF INHALER INH SCH ×2 (07:43→19:07)
[2020-07-09] MEDS: Dexamethasone 4 MG TAB PO SCH (10:25)
[2020-07-09] MEDS: Zinc Sulfate 220 MG CAP PO SCH (10:25)
[2020-07-09] MEDS: Ascorbic Acid 500 mg Chewable Tablet PER TUBE SCH (10:25)
[2020-07-09] MEDS: Pantoprazole 40 MG GRANULES PACKET PER TUBE SCH ×2 (10:25→21:51)
[2020-07-09] MEDS: Rosuvastatin 10 MG TAB PO SCH (10:26)
[2020-07-09] MEDS: Cholecalciferol 1,000 UNITS (25 MCG) TAB PO SCH (10:26)
[2020-07-09] MEDS: Losartan 25 MG TAB PO SCH (10:26)
[2020-07-09] MEDS: ALPRAZolam 0.5 MG TAB PER TUBE SCH ×3 (10:26→21:51)
[2020-07-09] MEDS: Apixaban 5 MG TAB PO SCH ×2 (10:26→21:51)
[2020-07-09] MEDS: Polyethylene Glycol 3350 17 GM Packet PER TUBE SCH (10:46)
[2020-07-09] MEDS ORDERED: diphenhydrAMINE 12.5 MG/5 ML UDCUP PER TUBE PRN ×2 (18:18→20:19)
[2020-07-09] MEDS: clonazePAM 0.5 MG TAB PO SCH (21:51)
[2020-07-09] MEDS: Melatonin 3 MG TAB PO SCH (21:51)
[2020-07-10] MEDS: Mometasone 200 MCG/Formoterol 5 MCG 120 PUFF INHALER INH SCH ×2 (08:27→18:54)
[2020-07-10] MEDS: Cholecalciferol 1,000 UNITS (25 MCG) TAB PO SCH (09:12)
[2020-07-10] MEDS: Metamucil PACK PER TUBE SCH (09:12)
[2020-07-10] MEDS: Dexamethasone 4 MG TAB PO SCH (09:13)
[2020-07-10] MEDS: Pantoprazole 40 MG GRANULES PACKET PER TUBE SCH ×2 (09:13→22:19)
[2020-07-10] MEDS: Ascorbic Acid 500 mg Chewable Tablet PER TUBE SCH (09:13)
[2020-07-10] MEDS: Zinc Sulfate 220 MG CAP PO SCH (09:13)
[2020-07-10] MEDS: Rosuvastatin 10 MG TAB PO SCH (09:13)
[2020-07-10] MEDS: ALPRAZolam 0.5 MG TAB PER TUBE SCH ×3 (09:13→22:18)
[2020-07-10] MEDS: Acetaminophen 325 MG TAB PO PRN (09:14)
[2020-07-10] MEDS: Apixaban 5 MG TAB PO SCH ×2 (09:14→22:18)
[2020-07-10] MEDS: Losartan 25 MG TAB PO SCH (09:14)
[2020-07-10] MEDS: Polyethylene Glycol 3350 17 GM Packet PER TUBE SCH (09:15)
[2020-07-10] MEDS ORDERED: Polyethylene Glycol 3350 17 GM Packet PER TUBE PRN (09:23)
[2020-07-10 17:26] VITALS: BP 118/88
[2020-07-10] MEDS: clonazePAM 0.5 MG TAB PO SCH (22:18)
[2020-07-10] MEDS: Melatonin 3 MG TAB PO SCH (22:19)
[2020-07-11] MEDS: Mometasone 200 MCG/Formoterol 5 MCG 120 PUFF INHALER INH SCH ×2 (08:06→19:05)
[2020-07-11] MEDS: Dexamethasone 4 MG TAB PO SCH (08:28)
[2020-07-11] MEDS: Ascorbic Acid 500 mg Chewable Tablet PER TUBE SCH (08:30)
[2020-07-11] MEDS: Pantoprazole 40 MG GRANULES PACKET PER TUBE SCH ×2 (08:30→21:05)
[2020-07-11] MEDS: Zinc Sulfate 220 MG CAP PO SCH (08:30)
[2020-07-11] MEDS: ALPRAZolam 0.5 MG TAB PER TUBE SCH ×3 (08:30→21:05)
[2020-07-11] MEDS: Rosuvastatin 10 MG TAB PO SCH (08:30)
[2020-07-11] MEDS: Cholecalciferol 1,000 UNITS (25 MCG) TAB PO SCH (08:30)
[2020-07-11] MEDS: Losartan 25 MG TAB PO SCH (08:30)
[2020-07-11] MEDS: Apixaban 5 MG TAB PO SCH ×2 (08:30→21:06)
[2020-07-11] MEDS: Metamucil PACK PER TUBE SCH (08:37)
[2020-07-11] MEDS: clonazePAM 0.5 MG TAB PO SCH (21:05)
[2020-07-11] MEDS: Melatonin 3 MG TAB PO SCH (21:06)
[2020-07-12] MEDS: Metamucil PACK PER TUBE SCH (08:33)
[2020-07-12] MEDS: Cholecalciferol 1,000 UNITS (25 MCG) TAB PO SCH (08:34)
[2020-07-12] MEDS: Apixaban 5 MG TAB PO SCH ×2 (08:34→20:50)
[2020-07-12] MEDS: Pantoprazole 40 MG GRANULES PACKET PER TUBE SCH ×2 (08:34→20:50)
[2020-07-12] MEDS: Ascorbic Acid 500 mg Chewable Tablet PER TUBE SCH (08:34)
[2020-07-12] MEDS: Dexamethasone 4 MG TAB PO SCH (08:34)
[2020-07-12] MEDS: ALPRAZolam 0.5 MG TAB PER TUBE SCH ×3 (08:34→20:49)
[2020-07-12] MEDS: Rosuvastatin 10 MG TAB PO SCH (08:34)
[2020-07-12] MEDS: Zinc Sulfate 220 MG CAP PO SCH (08:34)
[2020-07-12] MEDS: Losartan 25 MG TAB PO SCH (08:35)
[2020-07-12] MEDS: Mometasone 200 MCG/Formoterol 5 MCG 120 PUFF INHALER INH SCH ×2 (08:57→19:12)
[2020-07-12] MEDS: Melatonin 3 MG TAB PO SCH (20:50)
[2020-07-12] MEDS: clonazePAM 0.5 MG TAB PO SCH (20:50)
[2020-07-13 05:56] VITALS: BMI 30.4
[2020-07-13] MEDS: Mometasone 200 MCG/Formoterol 5 MCG 120 PUFF INHALER INH SCH (08:23)
[2020-07-13 08:25] VITALS: TEMP 98
[2020-07-13] MEDS: Dexamethasone 4 MG TAB PO SCH (08:56)
[2020-07-13] MEDS ORDERED: Dexamethasone 4 MG TAB PO SCH (09:15)
[2020-07-13] MEDS: ALPRAZolam 0.5 MG TAB PER TUBE SCH ×2 (09:28→16:45)
[2020-07-13] MEDS: Apixaban 5 MG TAB PO SCH (09:29)
[2020-07-13] MEDS: Losartan 25 MG TAB PO SCH (09:29)
[2020-07-13] MEDS: Ascorbic Acid 500 mg Chewable Tablet PER TUBE SCH (09:29)
[2020-07-13] MEDS: Cholecalciferol 1,000 UNITS (25 MCG) TAB PO SCH (09:29)
[2020-07-13] MEDS: Rosuvastatin 10 MG TAB PO SCH (09:30)
[2020-07-13] MEDS: Zinc Sulfate 220 MG CAP PO SCH (09:30)
[2020-07-13] MEDS: Metamucil PACK PER TUBE SCH (09:30)
[2020-07-13] MEDS: Pantoprazole 40 MG GRANULES PACKET PER TUBE SCH (09:30)
[2020-07-13] MEDS ORDERED: Albuterol 200 PUFF (6.7GM INHALER) INH SCH (18:30)
[2020-07-13] MEDS ORDERED: Mometasone 200 MCG/Formoterol 5 MCG 120 PUFF INHALER INH SCH (18:30)
[2020-07-14] MEDS ORDERED: Dexamethasone 4 MG TAB PO SCH (08:00)
[2020-07-23 08:14] LABS: Fungus Culture Final report (.)
== END 2020-07-13 17:30 | DRG 4 ==
LOC: ERS 09:38 → ERHOLD 13:06 → 2SW 19:44 → IMCU/EMU 06-09 13:19 → CCU 06-23 11:45
PROVIDERS: ADMIT Internal Medicine; ATTEND Hospitalist
PROC: XW033E5 Introduction of Remdesivir Anti-infective into Peripheral Vein, Percutaneous Approach, New Technology Group 5 (ICD-10-PCS; 2020-06-07)
PROC: 8E0ZXY6 Isolation (ICD-10-PCS; 2020-06-07)
PROC: XW13325 Transfusion of Convalescent Plasma (Nonautologous) into Peripheral Vein, Percutaneous Approach, New Technology Group 5 (ICD-10-PCS; 2020-06-08)
PROC: 5A09357 Assistance with Respiratory Ventilation, Less than 24 Consecutive Hours, Continuous Positive Airway Pressure (ICD-10-PCS; 2020-06-09)
PROC: 5A1955Z Respiratory Ventilation, Greater than 96 Consecutive Hours (ICD-10-PCS; 2020-06-24)
PROC: 0BH17EZ Insertion of Endotracheal Airway into Trachea, Via Natural or Artificial Opening (ICD-10-PCS; 2020-06-25)
PROC: 0B9K8ZX Drainage of Right Lung, Via Natural or Artificial Opening Endoscopic, Diagnostic (ICD-10-PCS; 2020-06-25)
PROC: 0B113F4 Bypass Trachea to Cutaneous with Tracheostomy Device, Percutaneous Approach (ICD-10-PCS; principal; 2020-07-01)
PROC: 0DH63UZ Insertion of Feeding Device into Stomach, Percutaneous Approach (ICD-10-PCS; 2020-07-01)
PROC: 3E0G76Z Introduction of Nutritional Substance into Upper GI, Via Natural or Artificial Opening (ICD-10-PCS; 2020-07-01)
PROC: 02HV33Z Insertion of Infusion Device into Superior Vena Cava, Percutaneous Approach (ICD-10-PCS; 2020-07-05)
PROC: B548ZZA Ultrasonography of Superior Vena Cava, Guidance (ICD-10-PCS; 2020-07-05)
DX: U07.1 COVID-19 (principal); J12.82 Pneumonia due to coronavirus disease 2019; J96.01 Acute respiratory failure with hypoxia; I42.9 Cardiomyopathy, unspecified; I47.2 Ventricular tachycardia; I10 Essential (primary) hypertension; E78.5 Hyperlipidemia, unspecified; J44.9 Chronic obstructive pulmonary disease, unspecified; F41.9 Anxiety disorder, unspecified; G47.33 Obstructive sleep apnea (adult) (pediatric); E66.01 Morbid (severe) obesity due to excess calories; R74.01 Elevation of levels of liver transaminase levels; Z86.73 Personal history of transient ischemic attack (TIA), and cerebral infarction without residual deficits; Z68.30 Body mass index [BMI] 30.0-30.9, adult
CPT/HCPCS: 0240U; 31624; 36415; 36416; 36430; 36569; 36600; 71045; 71275; 80048; 80053; 80076; 81003; 82550; 82728; 82805; 83605; 83735; 83880; 84443; 84484; 85007; 85025; 85027; 85379; 86140; 86612; 86635; 86698; 86850; 86900; 86901; 87040; 87070; 87086; 87102; 87116; 87205; 87206; 87449; 93005; 93306; 94002; 94003; 94640; 94660; 94664; 96365; 96367; 96375; C1751; C9113; J0456; J0692; J0696; J1100; J1650; J1940; J2060; J2250; J2405; J2704; J2930; J3010; J3262; J3490; J7050; J7620; J8540; P9017; Q0163; Q9967

== ENCOUNTER 2020-09-27 09:12 | Outpatient (CLI) | payer BC | END 2020-09-27 09:13 | disposition home or self-care (01) | LOC: BICRAD 09:12 | PROVIDERS: ATTEND Internal Medicine Pulmonary Disease | DX: R06.00 Dyspnea, unspecified (principal); J98.4 Other disorders of lung | CPT/HCPCS: 71046 ==